=== PATIENT | female | born 1930 | race Two or more races ===

== ENCOUNTER 2017-06-16 14:16 | Inpatient (IN) | payer OTHER, BC ==
--- NOTE | 2017-06-16 15:14 | PDOC ---
History of Present Illness - General Chief Complaint: Lightheaded Stated Complaint: WEAKNESS/SHORTNESS OF BREATH Time Seen by Provider: 06/16/17 14:29 History Source: Patient, Family Exam Limitations: No Limitations - History of Present Illness Initial Comments: 06/16/17 15:11 86 y/o F with PMH cerebral aneurysm L ICA (followed by Dr. Batista), CHF, L lung nodule, L inguinal hernia, WA, HTN, HLD, who presents to the ED c/o weakness over the past week. As per daughter, on Monday, pt developed a productive cough with white sputum. She was tx with robitussin and improved. On , however, pt's cough continued (white sputum now with small specks of BRB) and she suffered from two falls- the first, while getting up to walk to the bathroom, second when she was rising from the commode. During both instances , pt's walker was not nearby. Pt denied palpitations, lightheadedness, LOC, or head trauma during both falls. After pt's falls, daughter brought pt to Dr. Blevins, her neurologist who recommended that she come to the ED for further evaluation. Over the past wk, pt has also c/o generalized weakness and decreased appetite. However, denies wt changes, night sweats, or KINCAID, fever, chills, or changes in urinary or bowel function. Upon ED arrival, pt hypoxic (EMS did not record initial sat) and tachypneic, however sat up to 96% when she was placed on 4L NC 02. At baseline, pt has a health aid and ambulates with a walker. 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 smoked cigarettes for 1-2 yrs during 20's - 1ppd, drank socially. Denied recreational drug use. Past History - Past Medical History Allergies/Adverse Reactions: Allergies Allergy/AdvReac Type Severity Reaction Status Date / Time No Known Allergies Allergy Verified 06/16/17 14:49 Home Medications: Ambulatory Orders Donepezil HCl [Aricept -] 0 mg PO DAILY 06/16/17 Furosemide [Lasix -] 20 mg PO DAILY 06/16/17 Lisinopril 10 mg PO DAILY 06/16/17 Simvastatin 20 mg PO DAILY 06/16/17 - Suicide/Smoking/Psychosocial Hx Smoking History: Never smoked Hx Alcohol Use: No Drug/Substance Use Hx: No Review of Systems - Review of Systems Able to Perform ROS?: Yes Is the patient limited Malay proficient: No Constitutional: Yes: Loss of Appetite, Weakness HEENTM: Yes: Cataracts Respiratory: Yes: Wheezing, Productive cough Cardiac (ROS): Yes: Edema Neurological: Yes: Weakness Psychiatric: Yes: Change in Appetite All Other Systems: Reviewed and Negative *Physical Exam - Vital Signs Last Vital Signs Temp Pulse Resp BP Pulse Ox 97.9 F 68 32 H 132/87 06/16/17 14:40 06/16/17 14:40 06/16/17 14:40 06/16/17 14:40 - Physical Exam General Appearance: Yes: Thin, Other (resting comfortably, in no distress) HEENT: positive: Normal ENT Inspection Neck: positive: Supple Respiratory/Chest: positive: Rhonchi, Wheezing Cardiovascular: positive: Regular Rhythm, Regular Rate, S1, S2 Vascular Pulses: Dorsalis-Pedis (R): 2+, Doralis-Pedis (L): 2+ Gastrointestinal/Abdominal: positive: Normal Bowel Sounds, Soft Musculoskeletal: positive: Normal Inspection Extremity: positive: Swelling (1+ pitting edema b/l) Neurologic: positive: scarfer II-XII NML intact, Other (AAOx2 (self, place)) Heart Score/ECG Review - ECG Impressions Comment:: 06/16/17 16:36 EKG: sinus, pvc's, RVH, possible inferior infarct, rate 71, NJ 196, QRS 82, QTc 491 ED Treatment Course - LABORATORY CBC & Chemistry Diagram: 06/16/17 16:00 06/16/17 16:00 - RADIOLOGY Radiology Studies Ordered: Category Date Time Status CXRPORT [CHEST X-RAY PORTABLE*] [RAD] Stat Radiology 06/16/17 15:07 Ordered Medical Decision Making - Medical Decision Making 06/16/17 15:30 86 y/o F with PMH cerebral aneurysm L ICA (followed by Dr. Batista), CHF, L lung nodule, inguinal hernia, WA, HTN, HLD, who presents to the ED c/o weakness over the past week. Pt currently afebrile, however on presentation to ED hypoxic and with tachypnea. With productive cough with small amt blood, will r/ o PNA. Though pt afebrile, on exam, pt with significant rhonchi and crackles. Will give rocephin and zithromax in meantime. Will also do EKG as pt with multiple falls. Recommend ECHO if pt admitted or past report Will order the following and reassess CBC with diff CMP CXR Trop BNP Blood cx Ucx UA Rocephin 1g x1, zithromax 500mg x 1 06/16/17 17:21 Pt with elevated trop 0.30 - will trend. possibly 2/2 demand. Next trop 10pm CXR: shows cardiomegaly, congestion vs. pneumonic infiltrates. will give lasix 40mg iVP x 1 06/16/17 17:26 Pt will need tele. Microblog to [employer] sent 06/16/17 17:45 discussed case w/ Dr. Mahoney - tele will go under patsalos *DC/Admit/Observation/Transfer Diagnosis at time of Disposition: Pneumonia Qualifiers: Pneumonia type: due to unspecified organism Laterality: unspecified laterality Lung location: unspecified part of lung Qualified Code(s): J18.9 - Pneumonia, unspecified organism - Discharge Dispostion Condition at time of disposition: Guarded Admit: Yes - Referrals Referrals: Anushka Blevins MD [Primary Care Provider] - - Patient Instructions - Post Discharge Activity
[2017-06-16] MEDS ORDERED: CEFTRIAXONE 1 GM in DEXTROSE 5%-WATER - 50 ML IVPB ONE (15:21)
[2017-06-16] MEDS ORDERED: AZITHROMYCIN IVPB 500 MG in DEXTROSE 5%-WATER - 250 ML IVPB ONE (15:21)
--- NOTE | 2017-06-16 16:04 | PDOC ---
Attending Attestation - Resident Resident Name: Brittany Villa - ED Attending Attestation I have performed the following: I have examined & evaluated the patient, The case was reviewed & discussed with the resident, I agree w/resident's findings & plan, Exceptions are as noted - HPI HPI: 06/16/17 16:02 86 year old female with past medical history of congestive heart failure, cerebral aneurysm, hypertension, hyperlipidemia presents emergency department for several days of whitish productive cough with occasional scant blood. The patient has been feeling generally weak and with decreased appetite. She reports that there may be sick contacts to where she hangs out. Denies fevers or chills. However, patient was feeling so weak that she may have fallen twice. Denies head injury. Patient saw her primary care physician Dr. Blevins with and sent the patient to the ER. - Physicial Exam PE: 06/16/17 16:02 GENERAL: Awake, alert, and fully oriented, in no acute distress. HEAD: No signs of trauma EYES: PERRLA, EOMI, sclera anicteric, conjunctiva clear ENT: Auricles normal inspection, hearing grossly normal, nares patent, NECK: Normal ROM, supple LUNGS: Ronchorous breath sounds bilaterally with scant expiratory wheezing. HEART: Regular rate and rhythm, normal S1 and S2, no murmurs, rubs or gallops ABDOMEN: Soft, nontender. No guarding, no rebound. No masses EXTREMITIES: Normal range of motion, no edema. No clubbing or cyanosis. No cords, erythema, or tenderness NEUROLOGICAL: Cranial nerves II through XII grossly intact. Normal speech SKIN: Warm, Dry, normal turgor, no rashes or lesions noted. - Medical Decision Making 06/16/17 16:03 Vital Signs Temp Pulse Resp BP Pulse Ox 97.9 F 68 32 H 132/87 06/16/17 14:40 06/16/17 14:40 06/16/17 14:40 06/16/17 14:40 86-year-old female with past medical history of hypertension, hyperlipidemia, congestive heart failure presents with cough. We'll need to rule out pneumonia. Labs, cultures, chest x-ray and empiric antibody, ceftriaxone and azithromycin. Patient appears generally deconditioned and will likely benefit from admission to the hospital. 06/16/17 17:25 CBC, BMP 06/16/17 16:00 06/16/17 16:00 CMP Sodium 134 mmol/L (136-145) L 06/16/17 16:00 Potassium 4.3 mmol/L (3.5-5.1) 06/16/17 16:00 Chloride 97 mmol/L (98-107) L 06/16/17 16:00 Carbon Dioxide 24 mmol/L (21-32) 06/16/17 16:00 Anion Gap 13 (8-16) 06/16/17 16:00 BUN 31 mg/dL (7-18) H 06/16/17 16:00 Creatinine 1.1 mg/dL (0.55-1.02) H 06/16/17 16:00 Creat Clearance w eGFR 46.88 (>60) 06/16/17 16:00 Random Glucose 98 mg/dL (74-106) 06/16/17 16:00 Calcium 9.0 mg/dL (8.5-10.1) 06/16/17 16:00 Total Bilirubin 0.7 mg/dL (0.2-1.0) 06/16/17 16:00 AST 106 U/L (15-37) H 06/16/17 16:00 ALT 84 U/L (12-78) H 06/16/17 16:00 Alkaline Phosphatase 90 U/L (45-117) 06/16/17 16:00 Creatine Kinase 944 IU/L (26-192) H 06/16/17 16:00 Creatine Kinase Index 0.2 % (0.0-5.0) 06/16/17 16:00 CK-MB (CK-2) 2.435 ng/mL (0.5-3.6) 06/16/17 16:00 Troponin I 0.30 ng/ml (0.00-0.05) H 06/16/17 16:00 B-Natriuretic Peptide 02398.84 pg/ml (5-450) H 06/16/17 16:00 Total Protein 6.9 g/dl (6.4-8.2) 06/16/17 16:00 Albumin 3.0 g/dl (3.4-5.0) L 06/16/17 16:00 Chest xray with congestion and/or infiltrates. Will give IV lasix Troponin noted of 0.3. Will trend troponin. Aspirn Admit Heart Score/ECG Review #1 ECG reviewed & interpreted by me at: 16:05 06/16/17 16:17 NSR 71, RVH, Q wave III, avF, V6, T wave flat V6, TWI I, avL, QTC 491 msec, no std/kristian
[2017-06-16] MEDS ORDERED: AZITHROMYCIN IVPB 250 ML IVPB ONE (16:05)
[2017-06-16] MEDS ORDERED: CEFTRIAXONE 1 GM/50 ML BAG ONE (16:06)
[2017-06-16 16:54] LABS: BASO % 0.3 % (0-2.0); HEMATOCRIT 46.6 % (32.4-45.2); HEMOGLOBIN 15.7 GM/dL (10.7-15.3); LYMPH % 15.5 % (8-40); MCH 31.7 pg (25.7-33.7); MCHC 33.6 g/dl (32.0-36.0); MEAN CELL VOLUME 94.4 fl (80-96); MONO % 13.7 % (3.8-10.2); NEUT % 70.5 % (42.8-82.8); PLATELET COUNT 183 K/MM3 (134-434); RBC 4.94 M/mm3 (3.60-5.2); RDW 14.8 % (11.6-15.6); WHITE BLOOD COUNT 4.8 K/mm3 (4.0-10.0)
[2017-06-16 17:00] LABS: ALK PHOS 90 U/L (45-117); ANION GAP 13 (8-16); BILIRUBIN,TOTAL 0.7 mg/dL (0.2-1.0); BLOOD UREA NITROGEN 31 mg/dL (7-18); CHLORIDE 97 mmol/L (98-107); CO2 24 mmol/L (21-32); CREATININE 1.1 mg/dL (0.55-1.02); GLUCOSE,RANDOM 98 mg/dL (74-106); POTASSIUM 4.3 mmol/L (3.5-5.1); SGOT/AST 106 U/L (15-37); SGPT/ALT 84 U/L (12-78); SODIUM 134 mmol/L (136-145); TOT PROT 6.9 g/dl (6.4-8.2)
[2017-06-16] MEDS ORDERED: FUROSEMIDE 40 MG/4 ML INJECTABLE VIAL IVPUSH ONE (17:19)
[2017-06-16 17:51] LABS: URINE APPEARANCE CLOUDY; URINE BILIRUBIN NEGATIVE (NEGATIVE); URINE BLOOD 3+ (NEGATIVE); URINE COLOR AMBER; URINE GLUCOSE (UA) NEGATIVE (NEGATIVE); URINE KETONE NEGATIVE (NEGATIVE); URINE LEUK ESTERASE NEGATIVE (NEGATIVE); URINE NITRITE NEGATIVE (NEGATIVE); URINE UROBILINOGEN 4.0 E.U/dl mg/dL (0.2-1.0)
[2017-06-16] MEDS ORDERED: ASPIRIN COATED 81 MG TABLET.EC PO ONE (17:56)
[2017-06-16] MEDS ORDERED: FUROSEMIDE 40 MG/4 ML INJECTABLE VIAL ONE (17:57)
[2017-06-16] MEDS ORDERED: ASPIRIN 81 MG CHEWABLE TABLETS ONE (17:57)
[2017-06-16 18:01] LABS: URINE PROTEIN 3+ (NEGATIVE)
[2017-06-16 18:06] LABS: EPI CELLS RARE /HPF (FEW); URINE BACTERIA FEW /hpf (NONE SEEN); URINE HYALINE CAST 4 /lpf; URINE MUCUS RARE
--- NOTE | 2017-06-16 19:02 | PN ---
Teaching Attending Note Name of Resident: Sharon Mahoney ATTENDING PHYSICIAN STATEMENT I saw and evaluated the patient. I reviewed the resident's note and discussed the case with the resident. I agree with the resident's findings and plan as documented. SUBJECTIVE: 86 yo F with PMH CHF, Cerebral aneurysm, HTN and dyslipidemia presented with productive cough x5 days. Sputum has occasionally been streaked with blood. assoc with generalized weakness with multiple unwitnessed falls at home. states she felt weak and fell but did not strike her head and was able to get up without assistance. ambulates with RW. denies CP, fever, chills, myalgia, N/V/C/ D. no recent travel, no sick contacts or young kids. no recent abx use no improvement with robitussin OBJECTIVE: Last Vital Signs Temp Pulse Resp BP Pulse Ox 98.3 F 66 16 103/73 98 06/16/17 17:26 06/16/17 17:26 06/16/17 17:26 06/16/17 17:26 06/16/17 17:26 General thin appearing lady with mild tachypnea CV S1 S2 RRR no rub/gallop/murmur Lungs diffuse rhonchi, some wheezing no crackles Abdomen soft NT/ND Extremities 1+ pitting edema ASSESSMENT AND PLAN: 86 yo F with PMH CHF, Cerebral aneurysm, HTN and dyslipidemia presented with productive cough x5 days. 1. hemoptysis- tele admission. due to Acute on Chronic CHF vs PNA. started on azithromycin and ceftriaxone and lasix 40mg IV. will cont for now. obtain CT chest for questionable nodules seen and blood streaked sputum. will give neb x1 stat and then prn. supplemental oxygen as needed to maintain spO2 >90% 2. Tropinemia- no EKG changes. continuous cardiac monitoring. trend cardiac enzymes. check echo 3. Polycythemia- possible intravascular depleted. will monitor. if continues to trend up with consider heme eval 4. KRISTEL- due to pre-renal. check urine lytes. avoid nephrotoxic agents. hold acei 5. Dementia- cont aricept 6. dyslipiemia- on statin 7. DVT ppx- hep sq
--- NOTE | 2017-06-16 19:09 | HP ---
CHIEF COMPLAINT: weak PCP: HISTORY OF PRESENT ILLNESS: 86 year old female with a past medical history of hypertension, dementia, HLD, presents to the emergency brought in by her daughter, due to weakness, cough with white sputum production along with intermittent blood tinged sputum, for the past five days. She denies fever, chills, n, v, abdominal pain, changes in bowel or bladder. No sick contacts. She has also c/o weakness s/p two unwitnessed falls at home. Denies LOC, bodily injury, incontinence during episode, chest pain, palpitations. She uses a walker at home, admits to leg weakness. ER course was notable for: (1)CXR; cardiomegaly with nodular infiltrates Recent Travel: none PAST MEDICAL HISTORY: htn PAST SURGICAL HISTORY: Social History: Smoking:used to smoke 1 pack of cigarettes; 2day; quit years ago Alcohol:no Drugs: no Family History: Allergies No Known Allergies Allergy (Verified 06/16/17 14:49) HOME MEDICATIONS: Home Medications Medication Instructions Recorded Donepezil HCl [Aricept -] 0 mg PO DAILY 06/16/17 Furosemide [Lasix -] 20 mg PO DAILY 06/16/17 Lisinopril 10 mg PO DAILY 06/16/17 Simvastatin 20 mg PO DAILY 06/16/17 REVIEW OF SYSTEMS: see hpi PHYSICAL EXAMINATION Vital Signs - 24 hr 06/16/17 06/16/17 06/16/17 14:40 16:00 16:26 Temperature 97.9 F Pulse Rate 68 Pulse Rate [ Apical] Respiratory 32 H Rate Blood Pressure 132/87 Blood Pressure [Left Arm] O2 Sat by Pulse 100 100 Oximetry (%) 06/16/17 17:26 Temperature 98.3 F Pulse Rate Pulse Rate [ 66 Apical] Respiratory 16 Rate Blood Pressure Blood Pressure 103/73 [Left Arm] O2 Sat by Pulse 98 Oximetry (%) GENERAL: Awake, alert, and fully oriented to person, place, time; although mildy confused; not in acute distress . HEAD: Normal with no signs of trauma. EYES: Pupils equal, round and reactive to light, extraocular movements intact, sclera anicteric, conjunctiva clear. No lid lag. NECK: Normal range of motion, supple without lymphadenopathy, JVD, or masses. LUNGS: course breath sounds ; bilateral inspiratory/exp wheezes throughout lung cotter HEART: Regular rate and rhythm, normal S1 and S2 without murmur, rub or gallop. ABDOMEN: Soft, nontender, not distended, normoactive bowel sounds, no guarding, no rebound, no masses. No hepatomegaly or splenomegaly. MUSCULOSKELETAL: Normal range of motion at all joints. No bony deformities or tenderness. No CVA tenderness. UPPER EXTREMITIES: 2+ pulses, warm, well-perfused. No cyanosis. No clubbing. No peripheral edema. LOWER EXTREMITIES: 2+ pulses, warm, well-perfused. No calf tenderness. b/l 1+ pitting edema. NEUROLOGICAL: mild cognitive impairment at baseline; following comands; aaox3; full muscle strength and sensation Laboratory Results - last 24 hr 06/16/17 06/16/17 06/16/17 16:00 16:00 16:00 WBC 4.8 RBC 4.94 Hgb 15.7 H Hct 46.6 H MCV 94.4 MCH 31.7 MCHC 33.6 RDW 14.8 Plt Count 183 MPV 9.0 Neutrophils % 70.5 Lymphocytes % 15.5 Monocytes % 13.7 H Eosinophils % 0.0 Basophils % 0.3 Sodium 134 L Potassium 4.3 Chloride 97 L Carbon Dioxide 24 Anion Gap 13 BUN 31 H Creatinine 1.1 H Creat Clearance w eGFR 46.88 Random Glucose 98 Calcium 9.0 Total Bilirubin 0.7 AST 106 H ALT 84 H Alkaline Phosphatase 90 Creatine Kinase 944 H Creatine Kinase Index 0.2 CK-MB (CK-2) 2.435 Troponin I 0.30 H B-Natriuretic Peptide Total Protein 6.9 Albumin 3.0 L Urine Color Urine Appearance Urine pH Ur Specific [place] Urine Protein Urine Glucose (UA) Urine Ketones Urine Blood Urine Nitrite Urine Bilirubin Urine Urobilinogen Ur Leukocyte Esterase 06/16/17 06/16/17 16:00 17:10 WBC RBC Hgb Hct MCV MCH MCHC RDW Plt Count MPV Neutrophils % Lymphocytes % Monocytes % Eosinophils % Basophils % Sodium Potassium Chloride Carbon Dioxide Anion Gap BUN Creatinine Creat Clearance w eGFR Random Glucose Calcium Total Bilirubin AST ALT Alkaline Phosphatase Creatine Kinase Creatine Kinase Index CK-MB (CK-2) Troponin I B-Natriuretic Peptide 01359.84 H Total Protein Albumin Urine Color Kaitlyn Urine Appearance Cloudy Urine pH 5.0 Ur Specific [place] 1.019 Urine Protein 3+ H Urine Glucose (UA) Negative Urine Ketones Negative Urine Blood 3+ H Urine Nitrite Negative Urine Bilirubin Negative Urine Urobilinogen 4.0 e.u/dl H Ur Leukocyte Esterase Negative ASSESSMENT/PLAN: 86 year old female with a past medical history of hypertension, presents with cough (blood tinged sputum), weakness, s/p two falls at home with in the past week, tachypniec on admission, nodular pulmonary infiltrates on CXR , elevated bnp with b/l leg swelling; r/o pna; treat for acute chf. #cough with blood tinged sputum production: r/o pna/chf/lung nodules -IV ceftriaxone and IV azithromycin -f/u blood/sputum cultures -duoneb stat/prn -IV lasix 40mg stat; re eval volume status in am -monitor strict I/O; daily weights -echo -cardiac monitoring -f/u chest CT #elevated troponin: -no ecg chnages ; most likely demand ischemia from acute heart failure #KRISTEL: most likely pre renal -no baseline -cr1.1; -will hold off on hydration due to vol overload -hold nephrotoxic agents -urine lytes -trend creatinine; if continue to rise will get renal US #elevated liver enzymes: -no pain; hx of hepatitis or alcohol -may be due to statin -trend cmp; if continue to rise will get abdominal US #polycythemia: -will trend cbc; no thrombosis; marya red cell mass -if continues to trend up consider heme eval FEN: FLuids: strict monitor once; gentle hydration if kidney fnx worsens Electrolytes : wnl Diet: cardiac VTE: heparin sq Disposition: inpt tele Case discussed with attending Dr Jacob Mahoney PGY-2 Problem List - Problem (1) Acute CHF Code(s): I50.9 - HEART FAILURE, UNSPECIFIED (2) Hemoptysis Code(s): R04.2 - HEMOPTYSIS (3) Polycythemia Code(s): D75.1 - SECONDARY POLYCYTHEMIA (4) KRISTEL (acute kidney injury) Code(s): N17.9 - ACUTE KIDNEY FAILURE, UNSPECIFIED (5) Pneumonia Code(s): J18.9 - PNEUMONIA, UNSPECIFIED ORGANISM Qualifiers: Pneumonia type: due to unspecified organism Laterality: unspecified laterality Lung location: unspecified part of lung Qualified Code(s): J18.9 - Pneumonia, unspecified organism Visit type - Emergency Visit Emergency Visit: Yes ED Registration Date: 06/16/17 Care time: The patient presented to the Emergency Department on the above date and was hospitalized for further evaluation of their emergent condition. - New Patient This patient is new to me today: Yes Date on this admission: 06/17/17 - Critical Care Critical Care patient: No Hospitalist Screening - Colonoscopy Questionnaire Colonoscopy Questionnaire: Colonoscopy Questionnaire - Patient: 50 - 75 years old and never had a screening colonoscopy: No History of colon or rectal polyps, or CA: No History of IBD, Crohn's disease or UC: No History of abdominal radiation therapy as a child: No - Relative: 1 with colon or rectal CA, or polyps at age 60 or younger: No Colon or rectal CA diagnosed at age 45 or younger: No Multiple relatives with colon or rectal CA: No - Outcome: Screening Result: Negative Screen
[2017-06-16] MEDS ORDERED: ALBUTEROL SO4 2.5/IPRATROPIUM 0.5 INH SOL 3 ML VIAL.NEB. NEB ONE ×2 (19:12→20:46)
[2017-06-16] MEDS ORDERED: ALBUTEROL SO4 2.5/IPRATROPIUM 0.5 INH SOL 3 ML VIAL.NEB. NEB PRN (19:18)
[2017-06-16 20:38] LABS: PHOSPHOROUS 3.3 mg/dL (2.5-4.9)
[2017-06-16 21:24] VITALS: BMI 24.6
[2017-06-16] MEDS: HEPARIN NA (PORCINE) 5,000 UNITS/ML 1ML VIAL SQ SCH (22:04)
[2017-06-16] MEDS: ATORVASTATIN CA 10 MG TABLET (FP) PO SCH (22:04)
[2017-06-16] MEDS: DONEPEZIL HCL 5 MG TABLET (FP) PO SCH (22:04)
[2017-06-17 06:36] LABS: BASO % 0.5 % (0-2.0); HEMATOCRIT 48.2 % (32.4-45.2); HEMOGLOBIN 15.7 GM/dL (10.7-15.3); LYMPH % 23.2 % (8-40); MCH 30.9 pg (25.7-33.7); MCHC 32.5 g/dl (32.0-36.0); MEAN PLT VOLUME 8.5 fl (7.5-11.1); MONO % 11.4 % (3.8-10.2); NEUT % 64.9 % (42.8-82.8); RBC 5.07 M/mm3 (3.60-5.2); RDW 14.9 % (11.6-15.6)
[2017-06-17] MEDS: HEPARIN NA (PORCINE) 5,000 UNITS/ML 1ML VIAL SQ SCH ×3 (06:53→22:23)
[2017-06-17 07:18] LABS: CHLORIDE 98 mmol/L (98-107); POTASSIUM 3.8 mmol/L (3.5-5.1); SODIUM 135 mmol/L (136-145)
[2017-06-17 07:36] LABS: ALBUMIN 2.5 g/dl (3.4-5.0); ALK PHOS 89 U/L (45-117); ANION GAP 11 (8-16); BILIRUBIN,TOTAL 0.7 mg/dL (0.2-1.0); BLOOD UREA NITROGEN 33 mg/dL (7-18); CALCIUM 8.8 mg/dL (8.5-10.1); CO2 26 mmol/L (21-32); CREATININE 1.1 mg/dL (0.55-1.02); GLUCOSE,RANDOM 85 mg/dL (74-106); SGOT/AST 91 U/L (15-37); SGPT/ALT 72 U/L (12-78)
[2017-06-17 09:07] LABS: PLATELET COUNT 154 K/MM3 (134-434)
[2017-06-17] MEDS ORDERED: PT OWN MED DRAWER 7, Y5N ONE (09:30)
[2017-06-17] MEDS: AZITHROMYCIN IVPB 250 MG in DEXTROSE 5%-WATER - 250 ML IVPB SCH (09:38)
[2017-06-17] MEDS ORDERED: CEFTRIAXONE 1 G/50 ML PREMIX 50 ML IVPB ONE (10:00)
--- NOTE | 2017-06-17 11:39 | PN ---
Progress Note (short form) - Note Progress Note: c/o cough intermittently productive. slightly improved. no more hemoptysis. denies CP, SOB, fever, chills, cough, N/V/C/D Current Medications Generic Name Dose Route Start Last Admin Trade Name Freq PRN Reason Stop Dose Admin Albuterol/Ipratropium 1 amp 06/16/17 19:18 06/17/17 06:05 Duoneb - NEB 1 amp Q4H PRN Administration SHORTNESS OF BREATH Atorvastatin Calcium 10 mg 06/16/17 22:00 06/16/17 22:04 Lipitor - PO 10 mg HS MARIANA Administration Donepezil HCl 5 mg 06/16/17 22:00 06/16/17 22:04 Aricept - PO 5 mg HS MARIANA Administration Heparin Sodium (Porcine) 5,000 unit 06/16/17 22:00 06/17/17 06:53 Heparin - SQ 5,000 unit TID MARIANA Administration Azithromycin 250 mg/ Dextrose 250 mls @ 250 mls/hr 06/17/17 10:00 06/17/17 09 :38 IVPB 250 mls/hr DAILY MARIANA Administration Last Vital Signs Temp Pulse Resp BP Pulse Ox 97.7 F 69 20 125/70 96 06/17/17 06:00 06/17/17 06:00 06/17/17 06:00 06/17/17 06:00 06/16/17 21:18 Intake & Output 06/14/17 06/15/17 06/16/17 06/17/17 23:59 23:59 23:59 23:59 Weight 114 lb 108 lb 8 oz General NAD CV S1 S2 RRR no rub/gallop/murmur Lungs diffuse rhonchi,some crackles Abdomen soft NT/ND Extremities no pitting edema CBCD WBC 4.0 K/mm3 (4.0-10.0) 06/17/17 06:15 RBC 5.07 M/mm3 (3.60-5.2) 06/17/17 06:15 Hgb 15.7 GM/dL (10.7-15.3) H 06/17/17 06:15 Hct 48.2 % (32.4-45.2) H 06/17/17 06:15 MCV 95.0 fl (80-96) 06/17/17 06:15 MCHC 32.5 g/dl (32.0-36.0) 06/17/17 06:15 RDW 14.9 % (11.6-15.6) 06/17/17 06:15 Plt Count 154 K/MM3 (134-434) 06/17/17 06:15 MPV 8.5 fl (7.5-11.1) 06/17/17 06:15 CMP Sodium 135 mmol/L (136-145) L 06/17/17 06:15 Potassium 3.8 mmol/L (3.5-5.1) 06/17/17 06:15 Chloride 98 mmol/L (98-107) 06/17/17 06:15 Carbon Dioxide 26 mmol/L (21-32) 06/17/17 06:15 Anion Gap 11 (8-16) 06/17/17 06:15 BUN 33 mg/dL (7-18) H 06/17/17 06:15 Creatinine 1.1 mg/dL (0.55-1.02) H 06/17/17 06:15 Creat Clearance w eGFR 46.88 (>60) 06/17/17 06:15 Calcium 8.8 mg/dL (8.5-10.1) 06/17/17 06:15 Total Bilirubin 0.7 mg/dL (0.2-1.0) 06/17/17 06:15 AST 91 U/L (15-37) H 06/17/17 06:15 ALT 72 U/L (12-78) 06/17/17 06:15 Alkaline Phosphatase 89 U/L (45-117) 06/17/17 06:15 Total Protein 6.0 g/dl (6.4-8.2) L 06/17/17 06:15 Albumin 2.5 g/dl (3.4-5.0) L 06/17/17 06:15 ASSESSMENT AND PLAN: 86 yo F with PMH CHF, Cerebral aneurysm, HTN and dyslipidemia presented with productive cough x5 days. 1. Acute on chronic CHF exacerbation- 6 lb weight loss since yesterday. clinically improved. cont lasix 40mg IV daily. strict I&O, daily weights. echo on monday. 2. B/L PNA- likely persistent cough causing hemoptysis now resolved. saturating 98% on 2L NC. cont Azithromycin/Ceftriaxone day 2. make nebs RTC as not requesting them. supplemental oxygen as needed to maintain spO2 >90% 3. Tropinemia- no EKG changes. on monitor questionable irregular rhythm. will check EKG. check echo 4. Polycythemia- possible intravascular depleted. stable. if continues to trend up with consider heme eval 5. Mechanical fall-due to refusal to use RW at home. PT assessment. may require NEO on discharge 6. KRISTEL- due to pre-renal. FeNa <1%. will monitor with diuresis. monitor electrolytes. avoid nephrotoxic agents. hold acei 7. Dementia- cont aricept 8. dyslipiemia- on statin 9. DVT ppx- hep sq 10. spoke with daughter present at bedside. all questions answered. verbalized agreement with plan. Agreeable to NEO placement if needed. Preference Ela Visit type - Emergency Visit Emergency Visit: Yes ED Registration Date: 06/16/17 Care time: The patient presented to the Emergency Department on the above date and was hospitalized for further evaluation of their emergent condition. - New Patient This patient is new to me today: No - Critical Care Critical Care patient: No - Discharge Referral Referred to [facility] No
[2017-06-17] MEDS ORDERED: CEFTRIAXONE 1 GM in DEXTROSE 5%-WATER - 50 ML IVPB SCH (13:00)
[2017-06-17] MEDS: FUROSEMIDE 40 MG/4 ML INJECTABLE VIAL IVPUSH SCH (13:21)
[2017-06-17] MEDS: ALBUTEROL SO4 2.5/IPRATROPIUM 0.5 INH SOL 3 ML VIAL.NEB. NEB SCH ×2 (15:06→20:55)
[2017-06-17] MEDS: ATORVASTATIN CA 10 MG TABLET (FP) PO SCH (22:23)
[2017-06-17] MEDS: DONEPEZIL HCL 5 MG TABLET (FP) PO SCH (22:23)
--- NOTE | 2017-06-17 22:33 | EKG ---
Test Reason : Blood Pressure : / mmHG Vent. Rate : 077 BPM Atrial Rate : 077 BPM P-R Int : 000 ms QRS Dur : 084 ms QT Int : 404 ms P-R-T Axes : 000 -81 081 degrees QTc Int : 457 ms SINUS RHYTHM WITH PREMATURE VENTRICULAR COMPLEXES LEFT AXIS DEVIATION POSSIBLE LATERAL INFARCT (CITED ON OR BEFORE 16-JUN-2017) INFERIOR INFARCT (CITED ON OR BEFORE 16-JUN-2017) ABNORMAL ECG WHEN COMPARED WITH ECG OF 16-JUN-2017 16:07, NONSPECIFIC T WAVE ABNORMALITY, IMPROVED IN LATERAL LEADS Confirmed by MD JULIEN, DEEEDE ([id number]) on 06/17/2017 10:32:45 PM Referred By: Corey CROWLEY Confirmed By:DEEDEE VICTORIA MD
[2017-06-18] MEDS: HEPARIN NA (PORCINE) 5,000 UNITS/ML 1ML VIAL SQ SCH ×3 (05:52→21:24)
[2017-06-18 06:41] LABS: HEMATOCRIT 46.7 % (32.4-45.2); HEMOGLOBIN 15.1 GM/dL (10.7-15.3); MCH 30.5 pg (25.7-33.7); MCHC 32.4 g/dl (32.0-36.0); MEAN CELL VOLUME 94.2 fl (80-96); MEAN PLT VOLUME 8.2 fl (7.5-11.1); PLATELET COUNT 147 K/MM3 (134-434); RBC 4.96 M/mm3 (3.60-5.2); RDW 14.4 % (11.6-15.6); WHITE BLOOD COUNT 3.7 K/mm3 (4.0-10.0)
--- NOTE | 2017-06-18 07:19 | PN ---
Physical Exam: SUBJECTIVE: Patient seen and examined. No acute events overnight. Offers no new complaints. Says her breathing is better. Says she's still coughing a little but more dry with phlegm decreased. Denies SOB, hemoptysis, abdominal pain, chest pain, nausea, vomiting, fevers, chills. OBJECTIVE: Vital Signs Period Temp Pulse Resp BP Sys/Eastman Pulse Ox Last 24 Hr 98.3 F-98.9 F 74-95 20-20 116-148/72-92 97-99 GENERAL: The patient is awake, alert, and fully oriented, in no acute distress. HEAD: Normal with no signs of trauma. EYES: extraocular movements intact, conjunctiva clear. ENT:oropharynx clear without exudates, moist mucous membranes. NECK: supple. LUNGS: 2L NC, ins/exp wheezing, mild rhonchi HEART: Regular rate and rhythm, S1, S2 without murmur, rub or gallop. ABDOMEN: Soft, nontender, nondistended, normoactive bowel sounds, no guarding, no rebound, no hepatosplenomegaly, no masses. EXTREMITIES: 2+ pulses, warm, well-perfused, no edema. PSYCH: Normal mood, normal affect. Laboratory Results - last 24 hr 06/17/17 06/17/17 06:15 06:15 WBC 4.0 RBC 5.07 Hgb 15.7 H Hct 48.2 H MCV 95.0 MCH 30.9 MCHC 32.5 RDW 14.9 Plt Count 154 MPV 8.5 Neutrophils % 64.9 Lymphocytes % 23.2 D Monocytes % 11.4 H Eosinophils % 0.0 Basophils % 0.5 Sodium 135 L Potassium 3.8 Chloride 98 Carbon Dioxide 26 Anion Gap 11 BUN 33 H Creatinine 1.1 H Creat Clearance w eGFR 46.88 Random Glucose 85 Calcium 8.8 Total Bilirubin 0.7 AST 91 H ALT 72 Alkaline Phosphatase 89 Total Protein 6.0 L Albumin 2.5 L Active Medications Generic Name Dose Route Start Last Admin Trade Name Freq PRN Reason Stop Dose Admin Albuterol/Ipratropium 1 amp 06/16/17 19:18 06/17/17 06:05 Duoneb - NEB 1 amp Q4H PRN Administration SHORTNESS OF BREATH Albuterol/Ipratropium 1 amp 06/17/17 16:00 06/17/17 20:55 Duoneb - NEB 1 amp RQID MARIANA Administration Atorvastatin Calcium 10 mg 06/16/17 22:00 06/17/17 22:23 Lipitor - PO 10 mg HS MARIANA Administration Donepezil HCl 5 mg 06/16/17 22:00 06/17/17 22:23 Aricept - PO 5 mg HS MARIANA Administration Furosemide 40 mg 06/17/17 11:45 06/17/17 13:21 Lasix Injection - IVPUSH 40 mg DAILY MARIANA Administration Heparin Sodium (Porcine) 5,000 unit 06/16/17 22:00 06/18/17 05:52 Heparin - SQ Not Given TID MARIANA Azithromycin 250 mg/ Dextrose 250 mls @ 250 mls/hr 06/17/17 10:00 06/17/17 09 :38 IVPB 250 mls/hr DAILY MARIANA Administration CEFTRIAXONE 1 G/50 ML PREMIX 50 mls @ 100 mls/hr 06/17/17 13:30 Ceftriaxone 1 Gm-D5w Bag IVPB DAILY MARIANA ASSESSMENT/PLAN: 86 yo F with PMH CHF, Cerebral aneurysm, HTN and dyslipidemia presented with productive cough x5 days. #Acute on Chronic CHF exacerbation -Cont Lasix 40mg IV -Strict I/O's -Daily weights -Echo on Monday -Duonebs PRN #Bilateral Pneumonia -Cont. IV abx: Azithromycin/Ceftraixone Day 3 -CXR on admission: cardiomegaly with nodular infiltrates -afebrile, no leukocytosis -O2 therapy, maintain Sat>90% -Ucx, Bcx negative -1x Solumedrol 40mg #KRISTEL -resolved -likely due prerenal -will monitor BMP -avoid nephrotoxins -AceI held #Tropinemia -trended down -No ekg changes -FU echo tomorrow #Mechanical Fall -PT assessment -will require NEO on discharge #Dementia -cont home med: Aricept #Dyslipidemia -cont home med: Lipitor 10mg #DVT ppx -Hep sq Visit type - Emergency Visit Emergency Visit: Yes ED Registration Date: 06/16/17 Care time: The patient presented to the Emergency Department on the above date and was hospitalized for further evaluation of their emergent condition. - New Patient This patient is new to me today: Yes Date on this admission: 06/18/17 - Critical Care Critical Care patient: No
[2017-06-18 07:26] LABS: ANION GAP 9 (8-16); BLOOD UREA NITROGEN 24 mg/dL (7-18); CALCIUM 7.8 mg/dL (8.5-10.1); CHLORIDE 97 mmol/L (98-107); CO2 30 mmol/L (21-32); GLUCOSE,RANDOM 96 mg/dL (74-106); MAGNESIUM 1.7 mg/dL (1.8-2.4); PHOSPHOROUS 2.5 mg/dL (2.5-4.9); POTASSIUM 3.4 mmol/L (3.5-5.1); SODIUM 136 mmol/L (136-145)
[2017-06-18] MEDS ORDERED: MAGNESIUM SULF 50% (8.12 MEQ/2 ML-1 GM VIAL) IVPB ONE (07:44)
[2017-06-18] MEDS: ALBUTEROL SO4 2.5/IPRATROPIUM 0.5 INH SOL 3 ML VIAL.NEB. NEB SCH ×4 (07:57→21:20)
[2017-06-18] MEDS ORDERED: MAGNESIUM 1GM/D5W - 1 GM/100 ML IVPB IVPB ONE (09:30)
[2017-06-18] MEDS ORDERED: PT OWN MED DRAWER 7, Y5N ONE (09:50)
[2017-06-18] MEDS ORDERED: POTASSIUM CHLORIDE TABS 20 MEQ TABLET.ER (FP) PO ONE (10:03)
[2017-06-18] MEDS: FUROSEMIDE 40 MG/4 ML INJECTABLE VIAL IVPUSH SCH (10:29)
[2017-06-18] MEDS: CEFTRIAXONE 1 G/50 ML PREMIX 50 ML IVPB SCH (10:29)
[2017-06-18] MEDS: AZITHROMYCIN IVPB 250 MG in DEXTROSE 5%-WATER - 250 ML IVPB SCH (10:29)
--- NOTE | 2017-06-18 14:48 | PN ---
Teaching Attending Note Name of Resident: Teresa Gant ATTENDING PHYSICIAN STATEMENT I saw and evaluated the patient. I reviewed the resident's note and discussed the case with the resident. I agree with the resident's findings and plan as documented. SUBJECTIVE:continues to have cough but less productive. wheezing today with some relief with breathing treatments. denies CP, SOb, fever, chills, N/V/C?D as per staff editor was agitated last night. pt does not reacall OBJECTIVE: Last Vital Signs Temp Pulse Resp BP Pulse Ox 98.5 F 70 20 125/64 96 06/18/17 14:18 06/18/17 14:18 06/18/17 13:30 06/18/17 14:18 06/18/17 09:00 Intake & Output 06/15/17 06/16/17 06/17/17 06/18/17 23:59 23:59 23:59 23:59 Intake Total 250 Balance 250 Weight 114 lb 108 lb 8 oz General NAD CV S1 S2 RRR no murmur/rub/gallop Lungs diffuse wheezing. some crackles R base. poor inspiratory effort Extremities no pedal edema ASSESSMENT AND PLAN: 86 yo F with PMH CHF, Cerebral aneurysm, HTN and dyslipidemia presented with productive cough x5 days. 1. Acute on chronic CHF exacerbation- no weight today. will cont lasix IV daily. refused weight today. monitor electrolytes. strict I&O, daily weights. echo on monday. 2. B/L PNA- likely persistent cough causing hemoptysis now resolved. give solumedrol 40mg x1. saturating 98% on 2L NC. cont Azithromycin/Ceftriaxone day 3. cont nebs. supplemental oxygen as needed to maintain spO2 >90% 3. Tropinemia- no EKG changes. repeat EKG showing PAC. check echo 4. Polycythemia- possible intravascular depleted. resolved 5. Mechanical fall-due to refusal to use RW at home. PT assessment. may require NEO on discharge 6. KRISTEL- due to pre-renal. FeNa <1%. resolved. avoid nephrotoxic agents. hold acei 7. Dementia- agitation at night. will start seroquel. correction to aricept as per daughter takes 10mg will increase. 8. Hypokalemia- KCL po 9. Hypomagnesemia- Mg po 10. dyslipiemia- on statin 11. DVT ppx- hep sq 12. spoke with daughter present at bedside. all questions answered. verbalized agreement with plan.
[2017-06-18] MEDS ORDERED: methylPREDNISolone NA SUCC 40 MG/1 ML VIAL IVPUSH ONE (15:10)
[2017-06-18] MEDS: DONEPEZIL HCL 5 MG TABLET (FP) PO SCH (21:24)
[2017-06-18] MEDS: ATORVASTATIN CA 10 MG TABLET (FP) PO SCH (21:24)
[2017-06-18] MEDS ORDERED: QUEtiapine FUMARATE 25 MG TABLET (FP) PO SCH (22:00)
[2017-06-19] MEDS: HEPARIN NA (PORCINE) 5,000 UNITS/ML 1ML VIAL SQ SCH ×3 (05:24→21:51)
[2017-06-19 07:11] LABS: HEMATOCRIT 44.6 % (32.4-45.2); HEMOGLOBIN 14.7 GM/dL (10.7-15.3); MCH 30.9 pg (25.7-33.7); MCHC 32.9 g/dl (32.0-36.0); MEAN CELL VOLUME 93.7 fl (80-96); MEAN PLT VOLUME 8.2 fl (7.5-11.1); PLATELET COUNT 140 K/MM3 (134-434); RBC 4.76 M/mm3 (3.60-5.2); RDW 14.5 % (11.6-15.6); WHITE BLOOD COUNT 2.7 K/mm3 (4.0-10.0)
[2017-06-19] MEDS: ALBUTEROL SO4 2.5/IPRATROPIUM 0.5 INH SOL 3 ML VIAL.NEB. NEB SCH ×4 (07:20→19:02)
[2017-06-19 07:44] LABS: ANION GAP 8 (8-16); BLOOD UREA NITROGEN 25 mg/dL (7-18); CALCIUM 7.5 mg/dL (8.5-10.1); CHLORIDE 98 mmol/L (98-107); CO2 30 mmol/L (21-32); CREATININE 1.1 mg/dL (0.55-1.02); GLUCOSE,RANDOM 136 mg/dL (74-106); POTASSIUM 3.8 mmol/L (3.5-5.1); SODIUM 136 mmol/L (136-145)
[2017-06-19] MEDS: FUROSEMIDE 40 MG/4 ML INJECTABLE VIAL IVPUSH SCH (11:18)
[2017-06-19] MEDS: CEFTRIAXONE 1 G/50 ML PREMIX 50 ML IVPB SCH (11:18)
[2017-06-19] MEDS: AZITHROMYCIN IVPB 250 MG in DEXTROSE 5%-WATER - 250 ML IVPB SCH (11:18)
--- NOTE | 2017-06-19 12:56 | PN ---
Teaching Attending Note Name of Resident: Teresa Gant ATTENDING PHYSICIAN STATEMENT I saw and evaluated the patient. I reviewed the resident's note and discussed the case with the resident. I agree with the resident's findings and plan as documented. SUBJECTIVE:lethargic. shakes head no to difficulty breathing and CP. no cough OBJECTIVE: Last Vital Signs Temp Pulse Resp BP Pulse Ox 97.8 F 98 H 20 120/75 97 06/19/17 10:00 06/19/17 10:00 06/19/17 10:00 06/19/17 10:00 06/18/17 20:59 Intake & Output 06/16/17 06/17/17 06/18/17 06/19/17 23:59 23:59 23:59 23:59 Intake Total 250 100 Balance 250 100 Weight 114 lb 108 lb 8 oz 99 lb General lethargic, opens eyes to verbal commands CV S1 S2 RRR no murmur/rub/gallop Lungs some rhonchi. no wheezing no crackles Extremities no pedal edema ASSESSMENT AND PLAN: 86 yo F with PMH CHF, Cerebral aneurysm, HTN and dyslipidemia presented with productive cough x5 days. 1. Acute on chronic CHF exacerbation- 9 lb weight loss. no signs of volume overload. will convert lasix iv to po. echo done pending results. strict I&O, daily weights. 2. B/L PNA- likely persistent cough causing hemoptysis now resolved. clinically improved. cont Azithromycin/Ceftriaxone day 4. cont nebs. supplemental oxygen as needed to maintain spO2 >90% check pre & post 3. Tropinemia- no EKG changes. repeat EKG showing PAC. check echo 4. Polycythemia- possible intravascular depleted. resolved 5. Mechanical fall-due to refusal to use RW at home. PT assessment. may require NEO on discharge 6. KRISTEL- due to pre-renal. FeNa <1%. resolved. avoid nephrotoxic agents. consider re-starting acei tomorrow. 7. Dementia- no agitation last night with seroquel. however remains lethargic. frequent neurochecks. re-evaluate. 8. Hypokalemia-resolved 9. Hypomagnesemia- resolved 10. dyslipiemia- on statin 11. DVT ppx- hep sq 12. spoke with daughter present at bedside. all questions answered. verbalized agreement with plan.
--- NOTE | 2017-06-19 16:33 | PN ---
Physical Exam: SUBJECTIVE: Patient seen and examined. Patient lethargic. Responds by shaking head. Denies shortness of breath, chest pain, nausea, vomiting. OBJECTIVE: Vital Signs Period Temp Pulse Resp BP Sys/Eastman Pulse Ox Last 24 Hr 97.4 F-97.9 F 70-98 18-20 120-132/75-80 94-97 GENERAL: The patient is awake, alert, and fully oriented, in no acute distress. HEAD: Normal with no signs of trauma. EYES: extraocular movements intact, conjunctiva clear. ENT:oropharynx clear without exudates, moist mucous membranes. NECK: supple. LUNGS: 3L NC, ins/exp wheezing b/l HEART: Regular rate and rhythm, S1, S2 without murmur, rub or gallop. ABDOMEN: Soft, nontender, nondistended, normoactive bowel sounds, no guarding, no rebound, no hepatosplenomegaly, no masses. EXTREMITIES: 2+ pulses, warm, well-perfused, no edema. PSYCH: Normal mood, normal affect. Laboratory Results - last 24 hr 06/19/17 06/19/17 06:48 06:48 WBC 2.7 L RBC 4.76 Hgb 14.7 Hct 44.6 MCV 93.7 MCH 30.9 MCHC 32.9 RDW 14.5 Plt Count 140 MPV 8.2 Sodium 136 Potassium 3.8 Chloride 98 Carbon Dioxide 30 Anion Gap 8 BUN 25 H Creatinine 1.1 H Random Glucose 136 H Calcium 7.5 L Magnesium 2.0 Active Medications Generic Name Dose Route Start Last Admin Trade Name Freq PRN Reason Stop Dose Admin Albuterol/Ipratropium 1 amp 06/16/17 19:18 06/17/17 06:05 Duoneb - NEB 1 amp Q4H PRN Administration SHORTNESS OF BREATH Albuterol/Ipratropium 1 amp 06/17/17 16:00 06/19/17 15:48 Duoneb - NEB 1 amp RQID MARIANA Administration Atorvastatin Calcium 10 mg 06/16/17 22:00 06/18/17 21:24 Lipitor - PO 10 mg HS MARIANA Administration Donepezil HCl 10 mg 06/18/17 15:11 06/18/17 21:24 Aricept - PO 10 mg HS MARIANA Administration Furosemide 40 mg 06/20/17 10:00 Lasix - PO DAILY MARIANA Heparin Sodium (Porcine) 5,000 unit 06/16/17 22:00 06/19/17 05:24 Heparin - SQ 5,000 unit TID MARIANA Administration Azithromycin 250 mg/ Dextrose 250 mls @ 250 mls/hr 06/17/17 10:00 06/19/17 11 :18 IVPB 250 mls/hr DAILY MARIANA Administration CEFTRIAXONE 1 G/50 ML PREMIX 50 mls @ 100 mls/hr 06/17/17 13:30 06/19/17 11: 18 Ceftriaxone 1 Gm-D5w Bag IVPB 100 mls/hr DAILY MARIANA Administration ASSESSMENT/PLAN: 86 yo F with PMH CHF, Cerebral aneurysm, HTN and dyslipidemia presented with productive cough x5 days. #Acute on Chronic CHF exacerbation -Changed to Lasix 40mg PO daily -Strict I/O's -Daily weights -FU echo -Duonebs PRN #Bilateral Pneumonia -Cont. IV abx: Azithromycin/Ceftriaxone Day 4 -CXR on admission: cardiomegaly with nodular infiltrates -afebrile, no leukocytosis -O2 therapy, maintain Sat>90% -Ucx, Bcx negative #KRISTEL -resolved -likely due prerenal -will monitor BMP -avoid nephrotoxins -AceI held #Tropinemia -trended down -No ekg changes -FU echo tomorrow #Mechanical Fall -PT assessment -will require NEO on discharge -Pre/post in AM #Dementia -cont home med: Aricept -held Seroquel due to lethargy #Dyslipidemia -cont home med: Lipitor 10mg #DVT ppx -Hep sq Visit type - Emergency Visit Emergency Visit: Yes ED Registration Date: 06/16/17 Care time: The patient presented to the Emergency Department on the above date and was hospitalized for further evaluation of their emergent condition. - New Patient This patient is new to me today: No - Critical Care Critical Care patient: No
[2017-06-19] MEDS: ATORVASTATIN CA 10 MG TABLET (FP) PO SCH (21:51)
[2017-06-19] MEDS: DONEPEZIL HCL 5 MG TABLET (FP) PO SCH (21:51)
[2017-06-20] MEDS: HEPARIN NA (PORCINE) 5,000 UNITS/ML 1ML VIAL SQ SCH ×3 (06:18→21:28)
[2017-06-20 07:03] LABS: ALBUMIN 2.2 g/dl (3.4-5.0); ANION GAP 7 (8-16); BLOOD UREA NITROGEN 28 mg/dL (7-18); CALCIUM 7.6 mg/dL (8.5-10.1); CHLORIDE 99 mmol/L (98-107); CO2 31 mmol/L (21-32); GLUCOSE,RANDOM 80 mg/dL (74-106); POTASSIUM 3.7 mmol/L (3.5-5.1); SODIUM 137 mmol/L (136-145)
[2017-06-20 07:06] LABS: ALK PHOS 73 U/L (45-117); BILIRUBIN,TOTAL 0.6 mg/dL (0.2-1.0); CREATININE 1.1 mg/dL (0.55-1.02); SGOT/AST 93 U/L (15-37); SGPT/ALT 78 U/L (12-78); TOT PROT 5.4 g/dl (6.4-8.2)
[2017-06-20 07:08] LABS: HEMATOCRIT 44.1 % (32.4-45.2); HEMOGLOBIN 14.5 GM/dL (10.7-15.3); MCH 30.7 pg (25.7-33.7); MCHC 32.9 g/dl (32.0-36.0); MEAN CELL VOLUME 93.4 fl (80-96); PLATELET COUNT 162 K/MM3 (134-434); RBC 4.72 M/mm3 (3.60-5.2); RDW 14.7 % (11.6-15.6)
[2017-06-20] MEDS: ALBUTEROL SO4 2.5/IPRATROPIUM 0.5 INH SOL 3 ML VIAL.NEB. NEB SCH ×4 (07:11→20:22)
[2017-06-20] MEDS ORDERED: PT OWN MED DRAWER 7, Y5N ONE (09:58)
[2017-06-20] MEDS ORDERED: FUROSEMIDE 40 MG TABLET (FP) PO SCH (10:00)
[2017-06-20] MEDS: CEFTRIAXONE 1 G/50 ML PREMIX 50 ML IVPB SCH (10:04)
[2017-06-20] MEDS: AZITHROMYCIN IVPB 250 MG in DEXTROSE 5%-WATER - 250 ML IVPB SCH (11:17)
--- NOTE | 2017-06-20 11:41 | EKG ---
Test Reason : Blood Pressure : / mmHG Vent. Rate : 071 BPM Atrial Rate : 071 BPM P-R Int : 196 ms QRS Dur : 082 ms QT Int : 452 ms P-R-T Axes : 037 268 091 degrees QTc Int : 491 ms SINUS RHYTHM WITH PREMATURE SUPRAVENTRICULAR COMPLEXES RIGHT VENTRICULAR HYPERTROPHY POSSIBLE LATERAL INFARCT , AGE UNDETERMINED INFERIOR INFARCT , AGE UNDETERMINED ABNORMAL ECG NO PREVIOUS ECGS AVAILABLE Confirmed by MD Dk, Lyndon ([id number]) on 06/20/2017 11:41:05 AM Referred By: Confirmed By:Lyndon Root MD
--- NOTE | 2017-06-20 14:26 | PN ---
Physical Exam: SUBJECTIVE: Patient seen and examined. No acute events overnight. Patient offers no new complaints. Says her breathing and coughing has slightly improved today. Denies chest pain, dizziness, nausea, vomiting, chest pain. OBJECTIVE: Vital Signs Period Temp Pulse Resp BP Sys/Eastman Pulse Ox Last 24 Hr 97.3 F-97.9 F 68-82 18-20 119-126/61-76 95 GENERAL: The patient is awake, alert, and fully oriented, in no acute distress. HEAD: Normal with no signs of trauma. EYES: extraocular movements intact, conjunctiva clear. ENT:oropharynx clear without exudates, moist mucous membranes. NECK: supple. LUNGS: 2L NC, ins/exp wheezing b/l, diffuse rales and rhonchi HEART: Regular rate and rhythm, S1, S2 without murmur, rub or gallop. ABDOMEN: Soft, nontender, nondistended, normoactive bowel sounds, no guarding, no rebound, no hepatosplenomegaly, no masses. EXTREMITIES: 2+ pulses, warm, well-perfused, no edema. PSYCH: Normal mood, normal affect. Laboratory Results - last 24 hr 06/20/17 06/20/17 05:35 05:35 WBC 4.0 D RBC 4.72 Hgb 14.5 Hct 44.1 MCV 93.4 MCH 30.7 MCHC 32.9 RDW 14.7 Plt Count 162 MPV 8.0 Sodium 137 Potassium 3.7 Chloride 99 Carbon Dioxide 31 Anion Gap 7 L BUN 28 H Creatinine 1.1 H Creat Clearance w eGFR 46.88 Random Glucose 80 Calcium 7.6 L Total Bilirubin 0.6 AST 93 H ALT 78 Alkaline Phosphatase 73 Total Protein 5.4 L Albumin 2.2 L Active Medications Generic Name Dose Route Start Last Admin Trade Name Freq PRN Reason Stop Dose Admin Albuterol/Ipratropium 1 amp 06/16/17 19:18 06/17/17 06:05 Duoneb - NEB 1 amp Q4H PRN Administration SHORTNESS OF BREATH Albuterol/Ipratropium 1 amp 06/17/17 16:00 06/20/17 11:45 Duoneb - NEB 1 amp RQID MARIANA Administration Amoxicillin/Clavulanate Potassium 1 tab 06/21/17 17:30 Augmentin - 500mg Tablet PO BID@0800,1730 MARIANA Atorvastatin Calcium 10 mg 06/16/17 22:00 06/19/17 21:51 Lipitor - PO 10 mg HS MARIANA Administration Donepezil HCl 10 mg 06/18/17 15:11 06/19/17 21:51 Aricept - PO 10 mg HS MARIANA Administration Furosemide 40 mg 06/20/17 16:00 Lasix Injection - IVPUSH DAILY MARIANA Heparin Sodium (Porcine) 5,000 unit 06/16/17 22:00 06/20/17 06:18 Heparin - SQ 5,000 unit TID MARIANA Administration Azithromycin 250 mg/ Dextrose 250 mls @ 250 mls/hr 06/17/17 10:00 06/20/17 11 :17 IVPB 250 mls/hr DAILY MARIANA Administration ASSESSMENT/PLAN: 86 yo F with PMH CHF, Cerebral aneurysm, HTN and dyslipidemia presented with productive cough x5 days. #Acute on Chronic CHF exacerbation -IV Lasix 40mg daily -Strict I/O's -Daily weights -Echo: 40-45% Ejection fraction -Duonebs PRN #Bilateral Pneumonia -Cont. IV abx: Azithromycin Day 5 -Start Augmentin 500mg BID (Day 1) -Completed 5 days Ceftriaxone -CT chest: B/l Upper lobe and left lower lobe opacities -afebrile, no leukocytosis -O2 therapy, maintain Sat>90% -Ucx, Bcx negative -Chest PT #KRISTEL -resolved -likely due prerenal -will monitor BMP -avoid nephrotoxins -AceI held #Tropinemia -trended down -No ekg changes -FU echo tomorrow #Mechanical Fall -PT assessment -will require NEO on discharge -Pre/post in AM #Dementia -cont home med: Aricept -held Seroquel due to lethargy #Dyslipidemia -cont home med: Lipitor 10mg #DVT ppx -Hep sq Visit type - Emergency Visit Emergency Visit: Yes ED Registration Date: 06/16/17 Care time: The patient presented to the Emergency Department on the above date and was hospitalized for further evaluation of their emergent condition. - New Patient This patient is new to me today: No - Critical Care Critical Care patient: No
--- NOTE | 2017-06-20 14:52 | PN ---
Teaching Attending Note Name of Resident: Teresa Gant ATTENDING PHYSICIAN STATEMENT Time of evaluation: 11;35 AM I saw and evaluated the patient. I reviewed the resident's note and discussed the case with the resident. I agree with the resident's findings and plan as documented. SUBJECTIVE: Patient seen and examined. breathing with some improvement, still weak, no new complaints. OBJECTIVE: Vital Signs Period Temp Pulse Resp BP Sys/Eastman Pulse Ox Last 24 Hr 97.3 F-97.9 F 68-82 18-20 119-126/61-76 95 Intake & Output 06/17/17 06/18/17 06/19/17 06/20/17 23:59 23:59 23:59 23:59 Intake Total 250 100 550 Balance 250 100 550 Weight 108 lb 8 oz 99 lb 97 lb 4 oz General: sitting in bed, with some audible wheezing and coarse rales, no use of acessory muscles of respiration CVS;S1S2 regular Chest: bilateral scattered expiratory wheezing with coarse rales, positive air entry Extremities: trace pedal edema Abdomen: soft, NT, ND, positive bowel sounds Neuro: AAOx2 (not to time but able to repeat after reading on board), facial symmetry, power 4/5 (generalized weak but non focal) Home Medication List Medication Instructions Recorded Confirmed Type Donepezil HCl [Aricept -] 0 mg PO DAILY 06/16/17 06/16/17 History Furosemide [Lasix -] 20 mg PO DAILY 06/16/17 06/16/17 History Lisinopril 10 mg PO DAILY 06/16/17 06/16/17 History Simvastatin 20 mg PO DAILY 06/16/17 06/16/17 History Active Medications Generic Name Dose Route Start Last Admin Trade Name Freq PRN Reason Stop Dose Admin Albuterol/Ipratropium 1 amp 06/16/17 19:18 06/17/17 06:05 Duoneb - NEB 1 amp Q4H PRN Administration SHORTNESS OF BREATH Albuterol/Ipratropium 1 amp 06/17/17 16:00 06/20/17 11:45 Duoneb - NEB 1 amp RQID MARIANA Administration Amoxicillin/Clavulanate Potassium 1 tab 06/21/17 17:30 Augmentin - 500mg Tablet PO BID@0800,1730 MARIANA Atorvastatin Calcium 10 mg 06/16/17 22:00 06/19/17 21:51 Lipitor - PO 10 mg HS MARIANA Administration Donepezil HCl 10 mg 06/18/17 15:11 06/19/17 21:51 Aricept - PO 10 mg HS MARIANA Administration Furosemide 40 mg 06/20/17 16:00 Lasix Injection - IVPUSH DAILY [facility] Heparin Sodium (Porcine) 5,000 unit 06/16/17 22:00 06/20/17 06:18 Heparin - SQ 5,000 unit TID MARIANA Administration Laboratory Results - last 24 hr 06/20/17 06/20/17 05:35 05:35 WBC 4.0 D RBC 4.72 Hgb 14.5 Hct 44.1 MCV 93.4 MCH 30.7 MCHC 32.9 RDW 14.7 Plt Count 162 MPV 8.0 Sodium 137 Potassium 3.7 Chloride 99 Carbon Dioxide 31 Anion Gap 7 L BUN 28 H Creatinine 1.1 H Creat Clearance w eGFR 46.88 Random Glucose 80 Calcium 7.6 L Total Bilirubin 0.6 AST 93 H ALT 78 Alkaline Phosphatase 73 Total Protein 5.4 L Albumin 2.2 L Microbiology 06/16/17 16:00 Blood - Peripheral Venous Blood Culture - Preliminary NO GROWTH OBTAINED AFTER 72 HOURS, INCUBATION TO CONTINUE FOR 2 DAYS. 06/16/17 16:00 Blood - Peripheral Venous Blood Culture - Preliminary NO GROWTH OBTAINED AFTER 72 HOURS, INCUBATION TO CONTINUE FOR 2 DAYS. 06/16/17 17:10 Urine - Urine Clean Catch Urine Culture - Final NO GROWTH OBTAINED 2D echo reviewed ASSESSMENT AND PLAN: 86 yo F with PMH CHF, Cerebral aneurysm, HTN and dyslipidemia presented with productive cough x5 days, found with multifocal PNA and acute systolic heart failure exacerbation -Acute systolic heart failure exacerbation -Multifocal PNA vs aspiration -NSTEMI type II, suspect demand induced from above -KRISTEL, suspect prerenal from CHF -Mechanical fall -Hypokalemia -Dementia/sundowning -Hypokalemia/hypomagnesemia -Dyslipidemia Plan: 2D echo reviewed, ?h/o CHF. Patient with audible wheezing and coarse rales. Change lasix to 40 mg IV daily, retrieve prior 2d echo and cardiac history. Inpatient cardiac input accordingly. Mild troponin elevation on admission, trended down, 2D echo reviewed. Place on ASA 81 mg, continue statin. Hold off beta carlos till further info available. hold ACEi for now while monitoring renal function on diuresis. No fevers/WBC on admission, Multifocal findings, ?Aspiration/?Alveolar edema. s/ p 5 days of ceftriaxone/azithromycin. D/c azithromycin, transition to augmentin for 7-10 day course to avoid additional fluid load. positive exsmoker. Nebs prn, hold off on steroids for now. Lethargy improved after withholding seroquel, avoid for now. Fall precautions. DVTPPX with heparin. PT eval, refuses RW use at home. Anticipate NEO on d/c once medical issues improve. Follow up with CM. Plan discussed with patient in detail, all questions answered.
[2017-06-20] MEDS: FUROSEMIDE 40 MG/4 ML INJECTABLE VIAL IVPUSH SCH (15:55)
[2017-06-20] MEDS: ATORVASTATIN CA 10 MG TABLET (FP) PO SCH (21:28)
[2017-06-20] MEDS: DONEPEZIL HCL 5 MG TABLET (FP) PO SCH (21:28)
[2017-06-21] MEDS: ALBUTEROL SO4 2.5/IPRATROPIUM 0.5 INH SOL 3 ML VIAL.NEB. NEB SCH ×3 (01:00→20:54)
[2017-06-21] MEDS: HEPARIN NA (PORCINE) 5,000 UNITS/ML 1ML VIAL SQ SCH ×3 (04:59→21:39)
[2017-06-21 09:41] LABS: BASO % 0.4 % (0-2.0); EOS % 0.1 % (0-4.5); HEMATOCRIT 49.1 % (32.4-45.2); LYMPH % 23.6 % (8-40); MCH 30.8 pg (25.7-33.7); MCHC 32.6 g/dl (32.0-36.0); MEAN CELL VOLUME 94.3 fl (80-96); MEAN PLT VOLUME 7.9 fl (7.5-11.1); MONO % 13.1 % (3.8-10.2); NEUT % 62.8 % (42.8-82.8); PLATELET COUNT 192 K/MM3 (134-434); RBC 5.21 M/mm3 (3.60-5.2); RDW 14.8 % (11.6-15.6); WHITE BLOOD COUNT 3.9 K/mm3 (4.0-10.0)
[2017-06-21] MEDS ORDERED: AMOX TR/POT CLAV 500MG/125MG TABLETS (FP) PO SCH ×2 (09:55→17:30)
[2017-06-21 10:13] LABS: ALBUMIN 2.3 g/dl (3.4-5.0); ANION GAP 5 (8-16); BLOOD UREA NITROGEN 27 mg/dL (7-18); CHLORIDE 96 mmol/L (98-107); CO2 35 mmol/L (21-32); GLUCOSE,RANDOM 113 mg/dL (74-106); POTASSIUM 3.6 mmol/L (3.5-5.1); SGOT/AST 111 U/L (15-37); SGPT/ALT 100 U/L (12-78); SODIUM 136 mmol/L (136-145)
[2017-06-21 10:15] LABS: ALK PHOS 83 U/L (45-117); BILIRUBIN,TOTAL 0.7 mg/dL (0.2-1.0); TOT PROT 5.9 g/dl (6.4-8.2)
[2017-06-21] MEDS: FUROSEMIDE 40 MG/4 ML INJECTABLE VIAL IVPUSH SCH (11:57)
[2017-06-21] MEDS: AMOX TR/POT CLAV 500MG/125MG TABLETS (FP) PO SCH ×2 (12:04→18:05)
--- NOTE | 2017-06-21 12:49 | PN ---
Teaching Attending Note Name of Resident: Teresa Gant ATTENDING PHYSICIAN STATEMENT Time of evaluation: 10:15 AM I saw and evaluated the patient. I reviewed the resident's note and discussed the case with the resident. I agree with the resident's findings and plan as documented. SUBJECTIVE: Patient seen and examined, breathing improved, Ox2, no pain or new complaints. Feels better today. OBJECTIVE: Vital Signs Period Temp Pulse Resp BP Sys/Eastman Pulse Ox Last 24 Hr 97.3 F-98.4 F 70-99 18-20 108-131/58-79 95-95 Intake & Output 06/18/17 06/19/17 06/20/17 06/21/17 23:59 23:59 23:59 23:59 Intake Total 100 550 960 Balance 100 550 960 Weight 99 lb 97 lb 4 oz 98 lb 9.6 oz General: lying in bed no acute distress, better today, no audible rales or rhoncherous breath sounds Chest: improved air entry bilaterally, no wheezing, few basilar rales, decreased but improved effort Abdomen: soft, NT, ND, positive bowel sounds extremities: no edema Neuro AAOx2 (not to time), unchanged exam otherwise Home Medication List Medication Instructions Recorded Confirmed Type Donepezil HCl [Aricept -] 0 mg PO DAILY 06/16/17 06/16/17 History Furosemide [Lasix -] 20 mg PO DAILY 06/16/17 06/16/17 History Lisinopril 10 mg PO DAILY 06/16/17 06/16/17 History Simvastatin 20 mg PO DAILY 06/16/17 06/16/17 History Active Medications Generic Name Dose Route Start Last Admin Trade Name Freq PRN Reason Stop Dose Admin Albuterol/Ipratropium 1 amp 06/16/17 19:18 06/17/17 06:05 Duoneb - NEB 1 amp Q4H PRN Administration SHORTNESS OF BREATH Albuterol/Ipratropium 1 amp 06/17/17 16:00 06/20/17 20:22 Duoneb - NEB Not Given RQID MARIANA Amoxicillin/Clavulanate Potassium 1 tab 06/21/17 12:00 06/21/17 12:04 Augmentin - 500mg Tablet PO 1 tab BID@0800,1730 MARIANA Administration Atorvastatin Calcium 10 mg 06/16/17 22:00 06/20/17 21:28 Lipitor - PO 10 mg HS MARIANA Administration Donepezil HCl 10 mg 06/18/17 15:11 06/20/17 21:28 Aricept - PO 10 mg HS MARIANA Administration Furosemide 40 mg 06/20/17 16:00 06/21/17 11:57 Lasix Injection - IVPUSH 40 mg DAILY MARIANA Administration Heparin Sodium (Porcine) 5,000 unit 06/16/17 22:00 06/21/17 04:59 Heparin - SQ Not Given TID [facility] Laboratory Results - last 24 hr 06/21/17 06/21/17 09:15 09:15 WBC 3.9 L RBC 5.21 H Hgb 16.0 H D Hct 49.1 H MCV 94.3 MCH 30.8 MCHC 32.6 RDW 14.8 Plt Count 192 MPV 7.9 Neutrophils % 62.8 Lymphocytes % 23.6 Monocytes % 13.1 H Eosinophils % 0.1 D Basophils % 0.4 Sodium 136 Potassium 3.6 Chloride 96 L Carbon Dioxide 35 H Anion Gap 5 L BUN 27 H Creatinine 1.0 Creat Clearance w eGFR 52.33 Random Glucose 113 H Calcium 8.0 L Total Bilirubin 0.7 AST 111 H ALT 100 H Alkaline Phosphatase 83 Total Protein 5.9 L Albumin 2.3 L Microbiology 06/16/17 16:00 Blood - Peripheral Venous Blood Culture - Preliminary NO GROWTH OBTAINED AFTER 96 HOURS, INCUBATION TO CONTINUE FOR 1 DAYS. 06/16/17 16:00 Blood - Peripheral Venous Blood Culture - Preliminary NO GROWTH OBTAINED AFTER 96 HOURS, INCUBATION TO CONTINUE FOR 1 DAYS. 06/16/17 17:10 Urine - Urine Clean Catch Urine Culture - Final NO GROWTH OBTAINED ASSESSMENT AND PLAN: 86 yo F with PMH CHF, Cerebral aneurysm, HTN and dyslipidemia presented with productive cough x5 days, found with multifocal PNA and acute systolic heart failure exacerbation -Acute systolic heart failure exacerbation -Multifocal PNA vs aspiration -NSTEMI type II, suspect demand induced from above -KRISTEL, suspect prerenal from CHF -Mechanical fall -Hypokalemia -Dementia/sundowning -Hypokalemia/hypomagnesemia -Dyslipidemia Plan: Clinically improved today. Continue IV lasix. Antibiotics changed to Augmentin ( day 6). finish 7-10 day course. Multifocal PNA vs aspiration. Speech/swallow eval and aspiration precautions. Lasix 40 mg IV daily, strict I/Os, daily weights, retrieve prior cardiac history , if worsened EF, inpatient cardiology eval. Mild troponin elevation on admission, trended down, 2D echo reviewed. Place on ASA 81 mg, continue statin. Hold off beta carlos till further info available. hold ACEi for now while monitoring renal function on diuresis. positive exsmoker. Nebs prn, hold off on steroids for now. Lethargy improved after withholding seroquel, avoid for now. Fall precautions. Frequent orientation to environment. DVTPPX with heparin. PT eval, refuses RW use at home. Anticipate NEO on d/c once medical issues improve. Follow up with CM. Anticipate 1-2 days if continues to improve pending prior cardiac history. Plan discussed with patient in detail, all questions answered.
--- NOTE | 2017-06-21 16:47 | CON.CARD ---
Consult Consult Specialty:: Cardiology Reason for Consultation:: CHF - History of Present Illness Chief Complaint: Presently comfortable History of Present Illness: This is an 86 year old female with a PMH of dementia, HTn, and HLD. She presented with a cough and CXR showed cardiomegally and nodular infiltrate. Presently she is comfortable and denies cardiac symptoms. Echocardiogram 06/18/17: Moderate LVH Moderately reduced LV function EF 40 - 45% Normal RV function Mild to moderate TR - Past Medical History ...: No - Alcohol/Substance Use Hx Alcohol Use: Yes (occassional beer) - Smoking History Smoking history: Never smoked Have you smoked in the past 12 months: No Home Medications - Allergies Allergies/Adverse Reactions: Allergies Allergy/AdvReac Type Severity Reaction Status Date / Time No Known Allergies Allergy Verified 06/16/17 14:49 - Home Medications Home Medications: Ambulatory Orders Donepezil HCl [Aricept -] 0 mg PO DAILY 06/16/17 Furosemide [Lasix -] 20 mg PO DAILY 06/16/17 Lisinopril 10 mg PO DAILY 06/16/17 Simvastatin 20 mg PO DAILY 06/16/17 Review of Systems Findings/Remarks: As per HPI Vital Signs: Vital Signs Temperature 98.4 F 06/21/17 14:00 Pulse Rate 75 06/21/17 14:00 Respiratory Rate 20 06/21/17 14:00 Blood Pressure 136/77 06/21/17 14:00 O2 Sat by Pulse Oximetry (%) 95 06/21/17 09:00 Constitutional: Yes: No Distress, Thin HENT: Yes: WNL Neck: Yes: WNL Respiratory: Yes: Rales (Bibasilar rales) Gastrointestinal: Yes: Soft Cardiovascular: Yes: Regular Rate and Rhythm (NL S1S2, 2/6 HSM at the apex that varies with respiration) Edema: No Neurological: Yes: Alert, Oriented (Non focal) - Other Data Labs, Other Data: CBC, BMP 06/21/17 09:15 06/21/17 09:15 Assessment/Plan 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
--- NOTE | 2017-06-21 17:04 | PN ---
Physical Exam: SUBJECTIVE: Patient seen and examined. No acute events overnight except for some confusion, but patient at baseline. Patient offers no new complaints. Says her breathing is better today. Denies abdominal pain, chest pain, nausea, vomiting. OBJECTIVE: Vital Signs Period Temp Pulse Resp BP Sys/Eastman Pulse Ox Last 24 Hr 97.3 F-98.4 F 70-88 20-20 111-136/58-79 95-95 lying in bed no acute distress, better today, no audible rales or rhoncherous breath sounds Chest: improved air entry bilaterally, no wheezing, few basilar rales, decreased but improved effort GENERAL: A/o x 2 in NAD HEAD: Normal with no signs of trauma. EYES: extraocular movements intact, conjunctiva clear. ENT:oropharynx clear without exudates, moist mucous membranes. NECK: supple. LUNGS: No audible rales or rhonchi. improved. no wheezing today. Mild rales. Improved effort HEART: Regular rate and rhythm, S1, S2 without murmur, rub or gallop. ABDOMEN: Soft, nontender, nondistended, normoactive bowel sounds, no guarding, no rebound, no hepatosplenomegaly, no masses. EXTREMITIES: 2+ pulses, warm, well-perfused, no edema. PSYCH: Normal mood, normal affect. Laboratory Results - last 24 hr 06/21/17 06/21/17 09:15 09:15 WBC 3.9 L RBC 5.21 H Hgb 16.0 H D Hct 49.1 H MCV 94.3 MCH 30.8 MCHC 32.6 RDW 14.8 Plt Count 192 MPV 7.9 Neutrophils % 62.8 Lymphocytes % 23.6 Monocytes % 13.1 H Eosinophils % 0.1 D Basophils % 0.4 Sodium 136 Potassium 3.6 Chloride 96 L Carbon Dioxide 35 H Anion Gap 5 L BUN 27 H Creatinine 1.0 Creat Clearance w eGFR 52.33 Random Glucose 113 H Calcium 8.0 L Total Bilirubin 0.7 AST 111 H ALT 100 H Alkaline Phosphatase 83 Total Protein 5.9 L Albumin 2.3 L Active Medications Generic Name Dose Route Start Last Admin Trade Name Freq PRN Reason Stop Dose Admin Albuterol/Ipratropium 1 amp 06/16/17 19:18 06/17/17 06:05 Duoneb - NEB 1 amp Q4H PRN Administration SHORTNESS OF BREATH Albuterol/Ipratropium 1 amp 06/17/17 16:00 06/21/17 01:00 Duoneb - NEB 1 amp RQID MARIANA Administration Amoxicillin/Clavulanate Potassium 1 tab 06/21/17 12:00 06/21/17 12:04 Augmentin - 500mg Tablet PO 1 tab BID@0800,1730 MARIANA Administration Aspirin 81 mg 06/22/17 10:00 Asa - PO DAILY MARIANA Atorvastatin Calcium 10 mg 06/16/17 22:00 06/20/17 21:28 Lipitor - PO 10 mg HS MARIANA Administration Donepezil HCl 10 mg 06/18/17 15:11 06/20/17 21:28 Aricept - PO 10 mg HS MARIANA Administration Furosemide 40 mg 06/20/17 16:00 06/21/17 11:57 Lasix Injection - IVPUSH 40 mg DAILY MARIANA Administration Heparin Sodium (Porcine) 5,000 unit 06/16/17 22:00 06/21/17 14:57 Heparin - SQ Not Given TID MARIANA Lisinopril 10 mg 06/22/17 10:00 Prinivil PO DAILY [facility] ASSESSMENT/PLAN: 86 yo F with PMH CHF, Cerebral aneurysm, HTN and dyslipidemia presented with productive cough x5 days. #Acute on Chronic CHF exacerbation -IV Lasix 40mg daily -Strict I/O's -Daily weights -Echo: 40-45% Ejection fraction -Duvivianbs PRN -Dr. Hicks consulted (Patient's [employer]) #Bilateral Pneumonia -Completed Azithromycin,Ceftriaxone 5 days -ContAugmentin 500mg BID. Day 6 Abx -CT chest: B/l Upper lobe and left lower lobe opacities -afebrile, no leukocytosis -O2 therapy, maintain Sat>90% -Ucx, Bcx negative -Chest PT #KRISTEL -resolved -likely due prerenal -will monitor BMP -avoid nephrotoxins -Restart AceI #Tropinemia -trended down -No ekg changes -FU echo tomorrow #Mechanical Fall -will require NEO on discharge -Pre/post #Dementia -cont home med: Aricept -held Seroquel due to lethargy #Dyslipidemia -cont home med: Lipitor 10mg #DVT ppx -Hep sq Visit type - Emergency Visit Emergency Visit: Yes ED Registration Date: 06/16/17 Care time: The patient presented to the Emergency Department on the above date and was hospitalized for further evaluation of their emergent condition. - New Patient This patient is new to me today: No - Critical Care Critical Care patient: No
--- NOTE | 2017-06-21 17:20 | CONSULT ---
Admitting History and Physical - Past Medical History ...: No - Smoking History Smoking history: Never smoked Have you smoked in the past 12 months: No - Alcohol/Substance Use Hx Alcohol Use: Yes (occassional beer) History - Admission Reason For Visit: PNEUMONIA - Hearing Hearing: Normal Hearing Aide: No With Patient: No Speech Evaluation - Communication Primary Language: MONTSERRATIAN Communication: Yes: Within Normal Limits Oral Expression Ability: Yes: No Impairment - Speech Production Apraxia: No Able to Make Needs Known: Yes: WNL Intelligibility: Yes: WNL - Speech Characteristics Voice Loudness: Normal Voice Pitch: Yes: Normal Voice Phonatory-based Quality: Yes: Normal Speech Pattern: Normal Nasal Resonance: Normal Articulation: Yes: Precise Rate of Speech: Intact Voice Comment: Vocal quality and airway protection is WNL - Language/Auditory Comprehension Follows: Yes: 1 Stage Simple Commands (WFL) Observation: Able to respond to yes/no queries: Yes, Yes/No Confusion: No, Comprehends Conversational Speech: Yes, Benefits from Slow Speech: Yes, Benefits from Repetiton: No, Benefits from Increased Volume of Speech: No - Language/Verbal Expression Able to Respond to Simple Queries: Yes: WNL Able to Communicate Wants and Needs: Yes: WNL Functional Communication Status: Yes: WNL Aware of Errors: Yes Attempts to Correct Errors: Yes Use of Gestures: No Written Expression: Not examined Oral Expression: WFL Reading Comprehension: Not examined Calculations: Not examined Attention: Yes: Intact - Memory/Perception [facility] Memory: Yes: Mildly Impaired Short Term Memory: Yes: Mildly Impaired - Swallow Evaluation/Bedside Assessment Current Nutritional Intake: Regular (Sodium controlled), Thin Liquids Oral Secretions: Yes: WFL Tracheostomy Present: No Patient on Ventilator: No Dentition: Yes: Adequate Facial Symmetry at Rest: Symmetrical Facial Symmetry on Retraction: Symmetrical Facial Movement: Controlled Sensation: Normal Facial Comment: WFL for speech and swallow purposes. Jaw Position: Closed at Rest Against Resistance Opening: Weak Against Resistance Closing: Weak Pucker Lips: Normal Lips, Comment: WFL for speech and swallow purposes. Lingual Movement: Reduced Protrusion Lingual Speed of Movement: Normal Lingual Movement Strgth Against Opposition: Normal Lingual Movement Characteristics: Normal Lingual Comment: WFL for speech and swallow purposes. Soft Palate Description: Normal Color Hard Palate Description: Normal Color Gag Reflex: Strong Bite Reflex: Present Velopharyngeal Movement: Normal Laryngeal Elevation: WFL Laryngeal Movement: Able to Palpate Needs Assistance: Yes Rate of Intake: WFL Bolus Size: Small Labial Seal: WFL Chewing: WFL Oral Prep Time: WFL A-P Transit: WFL Pocketing: None Timing of Swallow: Delayed (2-4 second) Coughing/Throat Clear: No Change in Voice: No Other Findings/Remarks: 86 yo female seen at bedside for swallow eval to r/o dysphagia. Family member present for this session and provided medical history. Pt is verbal, A&Ox2 cooperative. Admitted to [facility] for general weakness and PNA. 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 PMHX includes HTN dementia HLD and KRISTEL. Pt demonstrates adequate vocal quality and airway protection. Current diet: regular solids with thin liquids. Family reported that over the year pt has shown a decrease in appetite. Pt given po trials of pureed and regular solids with assistance revealed good acceptance, increased mastication, adequate bolus formation and transport. Pharyngeal swallow are mildly delayed (2-4 seconds average) with no cough or changes in respiration. Thin liquids trials were unremarkable for aspiration at this time. Recommendations - Speech Evaluation, Impression/Plan Impression: 86 yo female present with mild anisha-pharyngeal dysphagia that is consistent with presbyphagia. No evidence of aspiration on any consistency offered at this time. Limited speech sample provided at this session. Manager Outpatient Goals: tolerate the least restrictive diet without s/s of aspiration. Short Term Goals: tolerate purees, regular solids thin liquids without s/s of aspiration. - Dysphagia Impressions/Plan Swallowing Skills: Impaired Dysphagia Impressions: Mild Impairment, Risk of Aspiration *Silent aspiration: cannot be R/O at bedside Dysphagia Treatment Plan: Small Bites, Safe Rate, 1/2 tsp. at a time, Elevate HOB during feed, Other (Alternate liquids for every 2-3 bites of solids. Monitor nutritional intake and pulmonary status.) Dysphagia Evaluation Summary: Pt is able to tolerate purees, regular (sodium controlled) solids and thin liquids without s/s of aspiration at this time. Continue current diet and observe standard aspiration precautions. Result given to dry pan charger and to pcp via chart. - Recommendations Diet Consistency: Regular (sodium controlled) Medication Administration: Crushed with applesauce Liquids: Thin Liquids
[2017-06-21] MEDS: ATORVASTATIN CA 10 MG TABLET (FP) PO SCH (21:39)
[2017-06-21] MEDS: DONEPEZIL HCL 5 MG TABLET (FP) PO SCH (21:39)
[2017-06-22] MEDS: HEPARIN NA (PORCINE) 5,000 UNITS/ML 1ML VIAL SQ SCH ×3 (05:19→22:25)
[2017-06-22 07:08] LABS: HEMATOCRIT 47.3 % (32.4-45.2); HEMOGLOBIN 15.8 GM/dL (10.7-15.3); MCH 31.5 pg (25.7-33.7); MCHC 33.5 g/dl (32.0-36.0); MEAN CELL VOLUME 93.9 fl (80-96); PLATELET COUNT 208 K/MM3 (134-434); RBC 5.03 M/mm3 (3.60-5.2); RDW 14.4 % (11.6-15.6); WHITE BLOOD COUNT 3.9 K/mm3 (4.0-10.0)
[2017-06-22] MEDS: ALBUTEROL SO4 2.5/IPRATROPIUM 0.5 INH SOL 3 ML VIAL.NEB. NEB SCH ×2 (07:25→11:10)
[2017-06-22 07:41] LABS: ALBUMIN 2.3 g/dl (3.4-5.0); ALK PHOS 80 U/L (45-117); ANION GAP 7 (8-16); BILIRUBIN,TOTAL 0.8 mg/dL (0.2-1.0); BLOOD UREA NITROGEN 33 mg/dL (7-18); CALCIUM 7.5 mg/dL (8.5-10.1); CHLORIDE 97 mmol/L (98-107); CO2 34 mmol/L (21-32); CREATININE 1.1 mg/dL (0.55-1.02); GLUCOSE,RANDOM 99 mg/dL (74-106); PHOSPHOROUS 2.6 mg/dL (2.5-4.9); POTASSIUM 3.6 mmol/L (3.5-5.1); SGOT/AST 98 U/L (15-37); SGPT/ALT 95 U/L (12-78); SODIUM 138 mmol/L (136-145); TOT PROT 5.7 g/dl (6.4-8.2)
--- NOTE | 2017-06-22 08:22 | PN ---
Teaching Attending Note Name of Resident: Teresa Gant ATTENDING PHYSICIAN STATEMENT Time of evaluation: 11:15 AM I saw and evaluated the patient. I reviewed the resident's note and discussed the case with the resident. I agree with the resident's findings and plan as documented with exceptions mentioned below. SUBJECTIVE: Patient seen and examined, breathing improved. OX2, not to time, no complaints otherwise. OBJECTIVE: Vital Signs Period Temp Pulse Resp BP Sys/Eastman Pulse Ox Last 24 Hr 97.4 F-98.8 F 70-83 18-20 111-136/59-80 95-95 Intake & Output 06/19/17 06/20/17 06/21/17 06/22/17 23:59 23:59 23:59 23:59 Intake Total 550 960 Balance 550 960 Weight 99 lb 97 lb 4 oz 98 lb 9.6 oz 91 lb 3.2 oz General: sitting in bed, no acute distress Chest: no rales or wheezing currently, markedly improved air entry Abdomen: soft, NT, ND, positive bowel sounds Home Medication List Medication Instructions Recorded Confirmed Type Donepezil HCl [Aricept -] 0 mg PO DAILY 06/16/17 06/16/17 History Furosemide [Lasix -] 20 mg PO DAILY 06/16/17 06/16/17 History Lisinopril 10 mg PO DAILY 06/16/17 06/16/17 History Simvastatin 20 mg PO DAILY 06/16/17 06/16/17 History Active Medications Generic Name Dose Route Start Last Admin Trade Name Freq PRN Reason Stop Dose Admin Albuterol/Ipratropium 1 amp 06/17/17 16:00 06/22/17 07:25 Duoneb - NEB 1 amp RQID MARIANA Administration Amoxicillin/Clavulanate Potassium 1 tab 06/21/17 12:00 06/21/17 18:05 Augmentin - 500mg Tablet PO 1 tab BID@0800,1730 MARIANA Administration Aspirin 81 mg 06/22/17 10:00 Asa - PO DAILY MARIANA Atorvastatin Calcium 10 mg 06/16/17 22:00 06/21/17 21:39 Lipitor - PO Not Given HS MARIANA Donepezil HCl 10 mg 06/18/17 15:11 06/21/17 21:39 Aricept - PO Not Given HS MARIANA Furosemide 40 mg 06/20/17 16:00 06/21/17 11:57 Lasix Injection - IVPUSH 40 mg DAILY [facility] Administration Heparin Sodium (Porcine) 5,000 unit 06/16/17 22:00 06/22/17 05:19 Heparin - SQ Not Given TID [facility] Lisinopril 10 mg 06/22/17 10:00 Prinivil PO DAILY [facility] Laboratory Results - last 24 hr 06/21/17 06/21/17 06/22/17 09:15 09:15 05:35 WBC 3.9 L 3.9 L RBC 5.21 H 5.03 Hgb 16.0 H D 15.8 H Hct 49.1 H 47.3 H MCV 94.3 93.9 MCH 30.8 31.5 MCHC 32.6 33.5 RDW 14.8 14.4 Plt Count 192 208 MPV 7.9 8.0 Neutrophils % 62.8 Lymphocytes % 23.6 Monocytes % 13.1 H Eosinophils % 0.1 D Basophils % 0.4 Sodium 136 Potassium 3.6 Chloride 96 L Carbon Dioxide 35 H Anion Gap 5 L BUN 27 H Creatinine 1.0 Creat Clearance w eGFR 52.33 Random Glucose 113 H Calcium 8.0 L Total Bilirubin 0.7 AST 111 H ALT 100 H Alkaline Phosphatase 83 Total Protein 5.9 L Albumin 2.3 L Microbiology 06/16/17 16:00 Blood - Peripheral Venous Blood Culture - Final NO GROWTH AFTER 5 DAYS INCUBATION 06/16/17 16:00 Blood - Peripheral Venous Blood Culture - Final NO GROWTH AFTER 5 DAYS INCUBATION 06/16/17 17:10 Urine - Urine Clean Catch Urine Culture - Final NO GROWTH OBTAINED ASSESSMENT AND PLAN: 86 yo F with PMH CHF, Cerebral aneurysm, HTN and dyslipidemia presented with productive cough x5 days, found with multifocal PNA and acute systolic heart failure exacerbation -Acute systolic heart failure exacerbation -Multifocal PNA vs aspiration -NSTEMI type II, suspect demand induced from above -KRISTEL, suspect prerenal from CHF -NSVT (13 beats) -Mechanical fall -Hypokalemia -Dementia/sundowning -Hypokalemia/hypomagnesemia -Dyslipidemia Plan: Mildly hypotensive today,?from aggressive diuresis. Hold further lasix. Continue ACei as BP tolerates. Patient with 13 best NSVT on telemetry, unclear why not on beta carlos. Discuss with cardiology. Clinically improved today. Continue IV lasix. Antibiotics changed to Augmentin ( day 7). finish after today. Multifocal PNA vs aspiration. Speech/swallow eval noted. HOld further lasix, transition to oral in 24 hours based on volume status and BP. Mild troponin elevation on admission, trended down, 2D echo reviewed. Place on ASA 81 mg, continue statin. Hold off beta carlos till further info available. ACEi resumed. positive exsmoker. Nebs prn, hold off on steroids for now. Lethargy improved after withholding seroquel, avoid for now. Fall precautions. Frequent orientation to environment. DVTPPX with heparin. PT eval, refuses RW use at home. Anticipate NEO on d/c once medical issues improve. Follow up with CM. Anticipate d/c to NEO in 24 hours if SBP stable and no new concerns. Plan discussed with patient in detail, all questions answered.
[2017-06-22] MEDS ORDERED: LISINOPRIL 10 MG TABLET (FP) PO SCH (10:00)
[2017-06-22] MEDS: ASPIRIN 81 MG CHEWABLE TABLETS PO SCH (10:14)
[2017-06-22] MEDS: AMOX TR/POT CLAV 500MG/125MG TABLETS (FP) PO SCH ×2 (10:14→19:28)
[2017-06-22] MEDS: FUROSEMIDE 40 MG/4 ML INJECTABLE VIAL IVPUSH SCH (13:07)
--- NOTE | 2017-06-22 14:21 | PN ---
Physical Exam: SUBJECTIVE: Patient seen and examined. No acute events overnight. Patient offers no new complaints today. says she feels better today. She says her breathing is better compared to yesterday. Denies SOB, chest pain, dizziness, lightheadedness, nausea and vomiting. OBJECTIVE: Vital Signs Period Temp Pulse Resp BP Sys/Eastman Pulse Ox Last 24 Hr 97.4 F-98.8 F 73-90 18-20 80-133/40-80 91-95 GENERAL: A/o x 2 in NAD HEAD: Normal with no signs of trauma. EYES: extraocular movements intact, conjunctiva clear. ENT:oropharynx clear without exudates, moist mucous membranes. NECK: supple. LUNGS: Lungs CTA b/l, no rales or wheezing appreciated HEART: Regular rate and rhythm, S1, S2 without murmur, rub or gallop. ABDOMEN: Soft, nontender, nondistended, normoactive bowel sounds, no guarding, no rebound, no hepatosplenomegaly, no masses. EXTREMITIES: 2+ pulses, warm, well-perfused, no edema. PSYCH: Normal mood, normal affect. Laboratory Results - last 24 hr 06/22/17 06/22/17 05:35 05:35 WBC 3.9 L RBC 5.03 Hgb 15.8 H Hct 47.3 H MCV 93.9 MCH 31.5 MCHC 33.5 RDW 14.4 Plt Count 208 MPV 8.0 Sodium 138 Potassium 3.6 Chloride 97 L Carbon Dioxide 34 H Anion Gap 7 L BUN 33 H Creatinine 1.1 H Creat Clearance w eGFR 46.88 Random Glucose 99 Calcium 7.5 L Phosphorus 2.6 Magnesium 2.0 Total Bilirubin 0.8 AST 98 H ALT 95 H Alkaline Phosphatase 80 Total Protein 5.7 L Albumin 2.3 L Active Medications Generic Name Dose Route Start Last Admin Trade Name Freq PRN Reason Stop Dose Admin Albuterol/Ipratropium 1 amp 06/17/17 16:00 06/22/17 11:10 Duoneb - NEB 1 amp RQID MARIANA Administration Amoxicillin/Clavulanate Potassium 1 tab 06/21/17 12:00 06/22/17 10:14 Augmentin - 500mg Tablet PO 1 tab BID@0800,1730 MARIANA Administration Aspirin 81 mg 06/22/17 10:00 06/22/17 10:14 Asa - PO 81 mg DAILY MARIANA Administration Atorvastatin Calcium 10 mg 06/16/17 22:00 06/21/17 21:39 Lipitor - PO Not Given HS MARIANA Donepezil HCl 10 mg 06/18/17 15:11 06/21/17 21:39 Aricept - PO Not Given HS MARIANA Heparin Sodium (Porcine) 5,000 unit 06/16/17 22:00 06/22/17 05:19 Heparin - SQ Not Given TID [facility] ASSESSMENT/PLAN: 86 yo F with PMH CHF, Cerebral aneurysm, HTN and dyslipidemia presented with productive cough x5 days. #Acute on Chronic CHF exacerbation -hypotensive today, possibly from aggresive diuresis -IV Lasix 40mg held today due to hypotension -Lisinopril also held -Strict I/O's -Daily weights -Echo: 40-45% Ejection fraction -Shun PRN -Dr. Hicks consulted (Patient's [employer]) -Check BP q2h. #Bilateral Pneumonia -Completed Azithromycin,Ceftriaxone 5 days -Cont Augmentin 500mg BID. Day 7 Abx -CT chest: B/l Upper lobe and left lower lobe opacities -afebrile, no leukocytosis -O2 therapy, maintain Sat>90% -Ucx, Bcx negative -Chest PT #Non-stustained v-tach -2 episodes overnight 13 beats -Called cardiology, waiting for call back -will monitor -Hold off beta carols until further information available #KRISTEL -resolved -likely due prerenal -will monitor BMP -avoid nephrotoxins #Tropinemia -trended down -No ekg changes -FU echo tomorrow #Mechanical Fall -will require NEO on discharge -Pre/post #Dementia -cont home med: Aricept -held Seroquel due to lethargy #Dyslipidemia -cont home med: Lipitor 10mg #DVT ppx -Hep sq Anticipate D/C 24 HOURS if patient improves. Will be discharged to Assisted. Visit type - Emergency Visit Emergency Visit: Yes ED Registration Date: 06/16/17 Care time: The patient presented to the Emergency Department on the above date and was hospitalized for further evaluation of their emergent condition. - New Patient This patient is new to me today: No - Critical Care Critical Care patient: No
--- NOTE | 2017-06-22 15:52 | PN ---
Progress Note, Physician Chief Complaint: NSVT noted History of Present Illness: This is an 86 year old female with a PMH of dementia, HTn, and HLD. She presented with a cough and CXR showed cardiomegally and nodular infiltrate. Presently she is comfortable and denies cardiac symptoms. Echocardiogram 06/18/17: Moderate LVH Moderately reduced LV function EF 40 - 45% Normal RV function Mild to moderate TR 13 beats of NSVT was noted - Current Medication List Current Medications: Active Medications Albuterol/Ipratropium (Duoneb -) 1 amp NEB RQID [facility] Last Admin: 06/22/17 11:10 Dose: 1 amp Amoxicillin/Clavulanate Potassium (Augmentin - 500mg Tablet) 1 tab PO BID@0800, 1730 [facility] Last Admin: 06/22/17 10:14 Dose: 1 tab Aspirin (Asa -) 81 mg PO DAILY [facility] Last Admin: 06/22/17 10:14 Dose: 81 mg Atorvastatin Calcium (Lipitor -) 10 mg PO HS [facility] Last Admin: 06/21/17 21:39 Dose: Not Given Donepezil HCl (Aricept -) 10 mg PO [facility] Last Admin: 06/21/17 21:39 Dose: Not Given Heparin Sodium (Porcine) (Heparin -) 5,000 unit SQ TID [facility] Last Admin: 06/22/17 05:19 Dose: Not Given - Objective Vital Signs: Vital Signs Temperature 98 F 06/22/17 12:31 Pulse Rate 78 06/22/17 12:31 Respiratory Rate 20 06/22/17 12:31 Blood Pressure 91/46 06/22/17 12:31 O2 Sat by Pulse Oximetry (%) 91 L 06/22/17 09:40 Constitutional: Yes: Thin HENT: Yes: WNL Neck: Yes: WNL Cardiovascular: Yes: Regular Rate and Rhythm (NL S1S2 no MRHG) Respiratory: Yes: CTA Bilaterally, Other (with minimal basilar crackles) Gastrointestinal: Yes: Soft Extremities: Yes: WNL Edema: No Neurological: Yes: Alert, Oriented (grossly non focal) Labs: CBC, BMP 06/22/17 05:35 06/22/17 05:35 Assessment/Plan CHF Combined systolic and diastolic Acute on chronic With 13 beats of NSVT noted Would add COREG 3.125 mg PO Q12 hours Would continue to hold lisinopril given low BP HLD Continue STATIN and ASA
[2017-06-22] MEDS: DONEPEZIL HCL 5 MG TABLET (FP) PO SCH (22:25)
[2017-06-22] MEDS: ATORVASTATIN CA 10 MG TABLET (FP) PO SCH (22:25)
[2017-06-23] MEDS: HEPARIN NA (PORCINE) 5,000 UNITS/ML 1ML VIAL SQ SCH ×2 (05:12→13:24)
[2017-06-23 06:58] LABS: HEMOGLOBIN 15.7 GM/dL (10.7-15.3); MCH 31.4 pg (25.7-33.7); MCHC 33.4 g/dl (32.0-36.0); MEAN CELL VOLUME 94.1 fl (80-96); PLATELET COUNT 233 K/MM3 (134-434); RDW 14.5 % (11.6-15.6); WHITE BLOOD COUNT 4.5 K/mm3 (4.0-10.0)
[2017-06-23 08:01] LABS: ALBUMIN 2.2 g/dl (3.4-5.0); ALK PHOS 76 U/L (45-117); ANION GAP 9 (8-16); BILIRUBIN,TOTAL 0.9 mg/dL (0.2-1.0); BLOOD UREA NITROGEN 33 mg/dL (7-18); CALCIUM 7.8 mg/dL (8.5-10.1); CHLORIDE 98 mmol/L (98-107); CO2 32 mmol/L (21-32); GLUCOSE,RANDOM 89 mg/dL (74-106); MAGNESIUM 2.2 mg/dL (1.8-2.4); PHOSPHOROUS 2.5 mg/dL (2.5-4.9); POTASSIUM 3.8 mmol/L (3.5-5.1); SGOT/AST 104 U/L (15-37); SGPT/ALT 97 U/L (12-78); SODIUM 139 mmol/L (136-145); TOT PROT 5.6 g/dl (6.4-8.2)
--- NOTE | 2017-06-23 09:49 | PN ---
Progress Note, [employer] - Note Progress Note: Selected Entries 06/22/17 06/22/17 06/22/17 02:00 05:52 10:00 Breakfast Lunch Supper Temperature 98.6 F 97.4 F L 98 F 06/22/17 06/22/17 06/22/17 10:15 12:31 13:19 Breakfast 25% Lunch 25% Supper Temperature 98 F 06/22/17 06/22/17 06/22/17 16:00 18:44 20:00 Breakfast Lunch Supper 25% Temperature 98.2 F 97.9 F 06/22/17 06/23/17 06/23/17 22:00 02:00 06:00 Breakfast Lunch Supper Temperature 98.3 F 97.9 F 97.8 F Laboratory Tests 06/23/17 05:35 WBC 4.5 Pt on reg diet/thin liquid. Flat affect. Simple verbal responses. Good mastication and brisk swallow without overt signs of aspiration. Consider appetite stimulant/supplements as indicated.
[2017-06-23] MEDS ORDERED: PT OWN MED DRAWER 7, Y5N ONE ×2 (10:31→15:09)
[2017-06-23] MEDS: CARVEDILOL 3.125 MG TABLET (FP) PO SCH ×2 (10:32→21:10)
[2017-06-23] MEDS: ASPIRIN 81 MG CHEWABLE TABLETS PO SCH (10:32)
--- NOTE | 2017-06-23 12:03 | DS ---
Physical Exam: SUBJECTIVE: Patient seen and examined. No acute events overnight. Patient offers no new complaints. Says her breathing is much better today. Denies dizziness, sob, chest pain, lightheadedness, abdominal pain, nausea and vomiting. OBJECTIVE: Vital Signs Period Temp Pulse Resp BP Sys/Eastman Pulse Ox Last 24 Hr 97.4 F-98.3 F 64-80 18-20 91-115/46-71 92-92 PHYSICAL EXAM GENERAL: A/o x 2 in NAD HEAD: Normal with no signs of trauma. EYES: extraocular movements intact, conjunctiva clear. ENT:oropharynx clear without exudates, moist mucous membranes. NECK: supple. LUNGS: Lungs CTA b/l, no rales or wheezing appreciated HEART: Regular rate and rhythm, S1, S2 without murmur, rub or gallop. ABDOMEN: Soft, nontender, nondistended, normoactive bowel sounds, no guarding, no rebound, no hepatosplenomegaly, no masses. EXTREMITIES: 2+ pulses, warm, well-perfused, no edema. PSYCH: Normal mood, normal affect. LABS Laboratory Results - last 24 hr 06/23/17 06/23/17 05:35 05:35 WBC 4.5 RBC 5.00 Hgb 15.7 H Hct 47.0 H MCV 94.1 MCH 31.4 MCHC 33.4 RDW 14.5 Plt Count 233 MPV 8.0 Sodium 139 Potassium 3.8 Chloride 98 Carbon Dioxide 32 Anion Gap 9 BUN 33 H Creatinine 1.0 Creat Clearance w eGFR 52.33 Random Glucose 89 Calcium 7.8 L Phosphorus 2.5 Magnesium 2.2 Total Bilirubin 0.9 AST 104 H ALT 97 H Alkaline Phosphatase 76 Total Protein 5.6 L Albumin 2.2 L HOSPITAL COURSE: Date of Admission:06/16/17 86 yo F with PMH of D&S CHF, Cerebral aneurysm, HTN and dyslipidemia presented with productive cough x5 days and was found to have Bilateral pneumonia and acute on chronic CHF exacerbation. Patient was treated with IV and oral antibiotics for a total of 7 days. Patient was also treated with Lasix. Patient was also found to have 2 episodes of V-tach. Cardiology was consulted. Patient started on Coreg. Patient clinically improved. Medically cleared for discharge. She will follow up outpatient with PCP and cardiology in 1 week. She will be transferred to SNF. Date of Discharge: 06/23/17 Minutes to complete discharge: 35 Discharge Summary Reason For Visit: PNEUMONIA Current Active Problems KRISTEL (acute kidney injury) (Acute) Acute CHF (Acute) Hemoptysis (Acute) Pneumonia (Acute) Polycythemia (Acute) Condition: Improved - Instructions Diet, Activity, Other Instructions: You were here because of pneumonia. You were treated with antibiotics. You will need to follow up with your primary care physician in 1 week. You will likely need a chest x ray in 4 weeks for resolution of pneumonia. Follow up with your wardrobe assistant in 1 week. He may want to adjust your blood pressure medications. Take medications as directed. You will be discharged on a new blood pressure medication called Carvedilol ( Coreg). You will need to take it 2 times a day. We have stopped your Lisinopril. Your doctor will decide whether he wants to continue you on it or not. You will also need to continue Lasix 20mg. Take 1 tablet a day. If you feel worsening shortness of breath, new fevers, dizziness, nausea, vomiting, please call your doctor or go to the nearest emergency room. Referrals: Maicol Hicks MD [Staff Physician] - 1 Week Anushka Blevins MD [Primary Care Provider] - 1 Week Disposition: INTERMEDIATE FACILITY - Home Medications Comprehensive Discharge Medication List: Ambulatory Orders Donepezil HCl [Aricept -] 0 mg PO DAILY 06/16/17 Furosemide [Lasix -] 20 mg PO DAILY 06/16/17 Simvastatin 20 mg PO DAILY 06/16/17 Aspirin [Ecotrin] 81 mg PO DAILY #30 tablet. 06/23/17 Carvedilol [Coreg -] 3.125 mg PO BID #60 tablet 06/23/17 This patient is new to me today: No Emergency Visit: Yes ED Registration Date: 06/16/17 Care time: The patient presented to the Emergency Department on the above date and was hospitalized for further evaluation of their emergent condition. Critical Care patient: No - Discharge Referral Referred to [facility] Med P.C.: No
--- NOTE | 2017-06-23 12:58 | PN ---
Teaching Attending Note Name of Resident: Teresa Gant ATTENDING PHYSICIAN STATEMENT Time of evaluation: 11:15 AM I saw and evaluated the patient. I reviewed the resident's note and discussed the case with the resident. I agree with the resident's findings and plan as documented. SUBJECTIVE: patient seen and examined, no complaints. OBJECTIVE: Vital Signs Period Temp Pulse Resp BP Sys/Eastman Pulse Ox Last 24 Hr 97.4 F-98.3 F 64-80 18-20 93-115/56-71 92-92 Intake & Output 06/20/17 06/21/17 06/22/17 06/23/17 23:59 23:59 23:59 23:59 Intake Total 960 540 Balance 960 540 Weight 97 lb 4 oz 98 lb 9.6 oz 91 lb 3.2 oz 90 lb 4 oz General: sitting in bed in no acute distress Chest: good air entry bilaterally, no rales or wheezing appreciated Abdomen:soft, NT, ND, positive bowel sounds extremities: no edema CVS:S1S2 regular Home Medication List Medication Instructions Recorded Confirmed Type Donepezil HCl [Aricept -] 0 mg PO DAILY 06/16/17 06/16/17 History Furosemide [Lasix -] 20 mg PO DAILY 06/16/17 06/16/17 History Simvastatin 20 mg PO DAILY 06/16/17 06/16/17 History Active Medications Generic Name Dose Route Start Last Admin Trade Name Freq PRN Reason Stop Dose Admin Aspirin 81 mg 06/22/17 10:00 06/23/17 10:32 Asa - PO 81 mg DAILY MARIANA Administration Atorvastatin Calcium 10 mg 06/16/17 22:00 06/22/17 22:25 Lipitor - PO 10 mg HS [facility]IANA Administration Carvedilol 3.125 mg 06/23/17 10:00 06/23/17 10:32 Coreg - PO 3.125 mg BID MARIANA Administration Donepezil HCl 10 mg 06/18/17 15:11 06/22/17 22:25 Aricept - PO 10 mg HS MARIANA Administration Heparin Sodium (Porcine) 5,000 unit 06/16/17 22:00 06/23/17 05:12 Heparin - SQ 5,000 unit TID MARIANA Administration Home Medication List Medication Instructions Recorded Confirmed Type Donepezil HCl [Aricept -] 0 mg PO DAILY 06/16/17 06/16/17 History Furosemide [Lasix -] 20 mg PO DAILY 06/16/17 06/16/17 History Simvastatin 20 mg PO DAILY 06/16/17 06/16/17 History Laboratory Results - last 24 hr 06/23/17 06/23/17 05:35 05:35 WBC 4.5 RBC 5.00 Hgb 15.7 H Hct 47.0 H MCV 94.1 MCH 31.4 MCHC 33.4 RDW 14.5 Plt Count 233 MPV 8.0 Sodium 139 Potassium 3.8 Chloride 98 Carbon Dioxide 32 Anion Gap 9 BUN 33 H Creatinine 1.0 Creat Clearance w eGFR 52.33 Random Glucose 89 Calcium 7.8 L Phosphorus 2.5 Magnesium 2.2 Total Bilirubin 0.9 AST 104 H ALT 97 H Alkaline Phosphatase 76 Total Protein 5.6 L Albumin 2.2 L Microbiology 06/16/17 16:00 Blood - Peripheral Venous Blood Culture - Final NO GROWTH AFTER 5 DAYS INCUBATION 06/16/17 16:00 Blood - Peripheral Venous Blood Culture - Final NO GROWTH AFTER 5 DAYS INCUBATION 06/16/17 17:10 Urine - Urine Clean Catch Urine Culture - Final NO GROWTH OBTAINED ASSESSMENT AND PLAN: 86 yo F with PMH CHF, Cerebral aneurysm, HTN and dyslipidemia presented with productive cough x5 days, found with multifocal PNA and acute systolic heart failure exacerbation -Acute systolic heart failure exacerbation -Multifocal PNA vs aspiration -NSTEMI type II, suspect demand induced from above -KRISTEL, suspect prerenal from CHF -NSVT (13 beats) -Mechanical fall -Hypokalemia -Dementia/sundowning -Hypokalemia/hypomagnesemia -Dyslipidemia Plan: BP improved. ACEi d/kristie for now. Resume coreg lower dose as per cardiology recs. Resume home lasix 20 mg daily starting tomorrow with weight monitoring at the SNF. No WBC or fevers or new concerns for infection. Follow up CXR in 4 weeks. Cardiology input appreciated. D/c to SNF today with outpatient cardiology follow up. Plan discussed with patient, questions answered.
[2017-06-23] MEDS ORDERED: MEGESTROL ACETATE 400 MG/10 ML UNIT DOSE CUP PO SCH (13:51)
[2017-06-23] MEDS: MEGESTROL ACETATE 400 MG/10 ML UNIT DOSE CUP PO SCH (15:12)
--- NOTE | 2017-06-23 16:27 | PN ---
Progress Note, Physician Chief Complaint: NSVT noted History of Present Illness: This is an 86 year old female with a PMH of dementia, HTn, and HLD. She presented with a cough and CXR showed cardiomegally and nodular infiltrate. Presently she is comfortable and denies cardiac symptoms. Echocardiogram 06/18/17: Moderate LVH Moderately reduced LV function EF 40 - 45% Normal RV function Mild to moderate TR 13 beats of NSVT was noted - Current Medication List Current Medications: Active Medications Aspirin (Asa -) 81 mg PO DAILY [facility] Last Admin: 06/23/17 10:32 Dose: 81 mg Atorvastatin Calcium (Lipitor -) 10 mg PO HS [facility] Last Admin: 06/22/17 22:25 Dose: 10 mg Carvedilol (Coreg -) 3.125 mg PO BID [facility] Last Admin: 06/23/17 10:32 Dose: 3.125 mg Donepezil HCl (Aricept -) 10 mg PO HS [facility] Last Admin: 06/22/17 22:25 Dose: 10 mg Heparin Sodium (Porcine) (Heparin -) 5,000 unit SQ TID [facility] Last Admin: 06/23/17 13:24 Dose: 5,000 unit Megestrol Acetate (Megace Oral Suspension -) 400 mg PO DAILY [facility] Last Admin: 06/23/17 15:12 Dose: 400 mg - Objective Vital Signs: Vital Signs Temperature 97.5 F L 06/23/17 13:25 Pulse Rate 64 06/23/17 13:25 Respiratory Rate 22 06/23/17 13:25 Blood Pressure 104/67 06/23/17 13:25 O2 Sat by Pulse Oximetry (%) 92 L 06/23/17 09:00 Constitutional: Yes: No Distress, Thin HENT: Yes: WNL Neck: Yes: WNL Cardiovascular: Yes: Regular Rate and Rhythm (NL S1S2, No MRHG) Respiratory: Yes: CTA Bilaterally Gastrointestinal: Yes: Soft Extremities: Yes: WNL Edema: No Neurological: Yes: Alert, Oriented (Non focal) Labs: CBC, BMP 06/23/17 05:35 06/23/17 05:35 Assessment/Plan CHF Combined systolic and diastolic Acute on chronic With 13 beats of NSVT noted Continue carvedilol 3.125 mg PO BID HLD Continue STATIN and ASA
[2017-06-23] MEDS: DONEPEZIL HCL 5 MG TABLET (FP) PO SCH (21:10)
[2017-06-23] MEDS: ATORVASTATIN CA 10 MG TABLET (FP) PO SCH (21:10)
[2017-06-24] MEDS ORDERED: PT OWN MED DRAWER 7, Y5N ONE (08:54)
[2017-06-24] MEDS: MEGESTROL ACETATE 400 MG/10 ML UNIT DOSE CUP PO SCH (09:14)
[2017-06-24] MEDS: ASPIRIN 81 MG CHEWABLE TABLETS PO SCH (09:14)
[2017-06-24] MEDS: CARVEDILOL 3.125 MG TABLET (FP) PO SCH ×2 (09:14→21:14)
--- NOTE | 2017-06-24 09:20 | PN ---
Addendum entered and electronically signed by King Rodgers RESIDENT 06/24/17 09:50: correction Patient is not on morphine drip. Patient feels better Reports breathing has improved. Denies chest pain, sob, lightheadidness, dizziness Early patient reused for meds but later agreed to take meds. GENERAL: awake, alert HEAD: Normal with no signs of trauma. EYES: extraocular movements intact, conjunctiva clear. ENT:oropharynx clear without exudates, moist mucous membranes. NECK: supple. LUNGS: b/l good air entry, no wheezing, no rales HEART: Regular rate and rhythm, S1, S2 without murmur, rub or gallop. ABDOMEN: Soft, nontender, nondistended, normoactive bowel sounds, no guarding, no rebound, EXTREMITIES: warm, well-perfused, no edema. PSYCH: Normal mood, normal affect. Examination. Original Note: <King Rodgers - Last Filed: 06/24/17 09:31> Physical Exam: SUBJECTIVE: No acute events overnight. Patient offers no new complaints today. says she feels better today with mprphine drip. breathing is same as yesterday. Denies SOB, chest pain, dizziness, lightheadedness, nausea and vomiting. OBJECTIVE: Vital Signs Period Temp Pulse Resp BP Sys/Eastman Pulse Ox Last 24 Hr 97.4 F-98.1 F 64-66 19-22 95-123/57-68 92 GENERAL: awake, alert. HEAD: Normal with no signs of trauma. EYES: extraocular movements intact, conjunctiva clear. ENT:oropharynx clear without exudates, moist mucous membranes. NECK: supple. LUNGS: good air entry left side, no wheezing and rales on right side, no breath sonud on right side HEART: Regular rate and rhythm, S1, S2 without murmur, rub or gallop. ABDOMEN: Soft, nontender, nondistended, normoactive bowel sounds, no guarding, no rebound, EXTREMITIES: warm, well-perfused, no edema. PSYCH: Normal mood, normal affect. Active Medications Generic Name Dose Route Start Last Admin Trade Name Freq PRN Reason Stop Dose Admin Aspirin 81 mg 06/22/17 10:00 06/24/17 09:14 Asa - PO 81 mg DAILY MARIANA Administration Atorvastatin Calcium 10 mg 06/16/17 22:00 06/23/17 21:10 Lipitor - PO Not Given HS MARIANA Carvedilol 3.125 mg 06/23/17 10:00 06/24/17 09:14 Coreg - PO 3.125 mg BID [facility] Administration Donepezil HCl 10 mg 06/18/17 15:11 06/23/17 21:10 Aricept - PO Not Given HS MARIANA Megestrol Acetate 400 mg 06/23/17 14:45 06/24/17 09:14 Megace Oral Suspension - PO 400 mg DAILY [facility] Administration ASSESSMENT/PLAN: 86 yo F with PMH CHF, Cerebral aneurysm, HTN and dyslipidemia presented with productive cough x5 days. #Acute on Chronic CHF exacerbation improved monitor vitals monitor intake and output ECHO reviewed daily weight. start lasix 20mg daily cardiology consult appreciated. jennie dc for now. #Bilateral Pneumonia - Improved . afebrile, no leukocytosis maintaining a saturation on room air. #Non-stustained v-tach - no new episodes over night - on low dose of coreg . - cardiology on case. #KRISTEL -resolved #Dementia -cont home med: Aricept -held Seroquel due to lethargy #Dyslipidemia -cont home med: Lipitor 10mg nutrition: sodium controlled diet fluid: orally allowed. Dispo: discharged to detention Visit type - Emergency Visit Emergency Visit: Yes ED Registration Date: 06/16/17 Care time: The patient presented to the Emergency Department on the above date and was hospitalized for further evaluation of their emergent condition. - New Patient This patient is new to me today: Yes Date on this admission: 06/24/17 - Critical Care Critical Care patient: No - Discharge Referral Referred to [facility] Med P.C.: No <Adia Dobbins - Last Filed: 06/24/17 11:06> Physical Exam: Patient seen and examined. Agree with above findings and plan of care with exceptions mentioned below. O/E: Chest: good air entry bilaterally,no rales or wheezing extremities: no edema 86 yo F with PMH CHF, Cerebral aneurysm, HTN and dyslipidemia presented with productive cough x5 days, found with multifocal PNA and acute systolic heart failure exacerbation -Acute systolic heart failure exacerbation -Multifocal PNA vs aspiration -NSTEMI type II, suspect demand induced from above -KRISTEL, suspect prerenal from CHF -NSVT (13 beats) -Mechanical fall -Hypokalemia -Dementia/sundowning -Hypokalemia/hypomagnesemia -Dyslipidemia Plan: BP improved. ACEi d/kristie for now. Continue coreg as tolerated. Resume home lasix 20 mg daily starting tomorrow with weight monitoring at the SNF. No WBC or fevers or new concerns for infection. Follow up CXR in 4 weeks. Cardiology input appreciated. Plan for d/c to SNF today pending disposition arrangements and approval. Plan discussed with patient, questions answered.
[2017-06-24] MEDS ORDERED: MEGESTROL ACETATE 400 MG/10 ML UNIT DOSE CUP PO SCH (10:00)
[2017-06-24] MEDS: FUROSEMIDE 20 MG TABLET (FP) PO SCH (12:41)
--- NOTE | 2017-06-24 16:03 | PN ---
Progress Note, Physician Chief Complaint: Cardiology follow up for cardiomyopathy and NSVT. No complaints Telemetry vent couplet. This is an 86 year old female with a PMH of dementia, HTn, and HLD. She presented with a cough and CXR showed cardiomegally and nodular infiltrate. Echocardiogram 06/18/17: Moderate LVH Moderately reduced LV function EF 40 - 45% Normal RV function Mild to moderate TR - Current Medication List Current Medications: Active Medications Aspirin (Asa -) 81 mg PO DAILY [facility] Last Admin: 06/24/17 09:14 Dose: 81 mg Atorvastatin Calcium (Lipitor -) 10 mg PO HS [facility] Last Admin: 06/23/17 21:10 Dose: Not Given Carvedilol (Coreg -) 3.125 mg PO BID [facility] Last Admin: 06/24/17 09:14 Dose: 3.125 mg Donepezil HCl (Aricept -) 10 mg PO HS [facility] Last Admin: 06/23/17 21:10 Dose: Not Given Furosemide (Lasix -) 20 mg PO DAILY [facility] Last Admin: 06/24/17 12:41 Dose: 20 mg Megestrol Acetate (Megace Oral Suspension -) 400 mg PO DAILY [facility] Last Admin: 06/24/17 09:14 Dose: 400 mg - Objective Vital Signs: Vital Signs Temperature 97.9 F 06/24/17 14:38 Pulse Rate 64 06/24/17 14:38 Respiratory Rate 18 06/24/17 14:38 Blood Pressure 88/48 06/24/17 14:38 O2 Sat by Pulse Oximetry (%) 98 06/24/17 09:00 Constitutional: Yes: Thin Eyes: Yes: Conjunctiva Clear, EOM Intact HENT: Yes: Atraumatic, Normocephalic Neck: Yes: Trachea Midline Cardiovascular: Yes: Regular Rate and Rhythm Respiratory: Yes: Regular, CTA Bilaterally Gastrointestinal: Yes: Normal Bowel Sounds, Soft Edema: No Labs: CBC, BMP 06/23/17 05:35 06/23/17 05:35 Problem List - Problems (1) KRISTEL (acute kidney injury) Code(s): N17.9 - ACUTE KIDNEY FAILURE, UNSPECIFIED (2) Acute CHF Code(s): I50.9 - HEART FAILURE, UNSPECIFIED Assessment/Plan systolic and diastolic Acute on chronic heart failure. Likely underlying CAD. Telemetry reviewed. Please check BNP
[2017-06-24] MEDS: ATORVASTATIN CA 10 MG TABLET (FP) PO SCH (21:14)
[2017-06-24] MEDS: DONEPEZIL HCL 5 MG TABLET (FP) PO SCH (21:14)
[2017-06-25] MEDS ORDERED: PT OWN MED DRAWER 7, Y5N ONE (10:48)
[2017-06-25] MEDS: ASPIRIN 81 MG CHEWABLE TABLETS PO SCH (11:03)
[2017-06-25] MEDS: FUROSEMIDE 20 MG TABLET (FP) PO SCH (11:04)
[2017-06-25] MEDS: CARVEDILOL 3.125 MG TABLET (FP) PO SCH ×2 (11:04→21:06)
[2017-06-25] MEDS: MEGESTROL ACETATE 400 MG/10 ML UNIT DOSE CUP PO SCH (11:04)
--- NOTE | 2017-06-25 12:48 | PN ---
Teaching Attending Note Name of Resident: Adia Dobbins ATTENDING PHYSICIAN STATEMENT Time of evaluation: 8:00 AM I saw and evaluated the patient. I reviewed the resident's note and discussed the case with the resident. I agree with the resident's findings and plan as documented. SUBJECTIVE: patient seen and examined, overall unchanged, minimal verbal responses, no complaints, breakfast at bedside, encouraged to eat, though not very willing. OBJECTIVE: Vital Signs Period Temp Pulse Resp BP Sys/Eastman Pulse Ox Last 24 Hr 97.2 F-97.9 F 64-67 18-20 88-113/48-62 94 Intake & Output 06/22/17 06/23/17 06/24/17 06/25/17 23:59 23:59 23:59 23:59 Intake Total 540 300 Balance 540 300 Weight 91 lb 3.2 oz 90 lb 4 oz general: sitting in bed in no acute distress Chest: decreased effort but no rales or wheezing abdomen: soft, NT, ND, positive bowel sounds extremities: no edema Home Medication List Medication Instructions Recorded Confirmed Type Donepezil HCl [Aricept -] 0 mg PO DAILY 06/16/17 06/16/17 History Furosemide [Lasix -] 20 mg PO DAILY 06/16/17 06/16/17 History Simvastatin 20 mg PO DAILY 06/16/17 06/16/17 History Active Medications Generic Name Dose Route Start Last Admin Trade Name Freq PRN Reason Stop Dose Admin Aspirin 81 mg 06/22/17 10:00 06/25/17 11:03 Asa - PO 81 mg DAILY [facility]IANA Administration Atorvastatin Calcium 10 mg 06/16/17 22:00 06/24/17 21:14 Lipitor - PO 10 mg HS [facility]IANA Administration Carvedilol 3.125 mg 06/23/17 10:00 06/25/17 11:04 Coreg - PO Not Given BID MARIANA Donepezil HCl 10 mg 06/18/17 15:11 06/24/17 21:14 Aricept - PO 10 mg HS MARIANA Administration Furosemide 20 mg 06/24/17 10:00 06/25/17 11:04 Lasix - PO 20 mg DAILY [facility]IANA Administration Megestrol Acetate 400 mg 06/23/17 14:45 06/25/17 11:04 Megace Oral Suspension - PO 400 mg DAILY [facility]IANA Administration Laboratory Results - last 24 hr 06/25/17 06:20 B-Natriuretic Peptide 13640.88 H Microbiology 06/16/17 16:00 Blood - Peripheral Venous Blood Culture - Final NO GROWTH AFTER 5 DAYS INCUBATION 06/16/17 16:00 Blood - Peripheral Venous Blood Culture - Final NO GROWTH AFTER 5 DAYS INCUBATION 06/16/17 17:10 Urine - Urine Clean Catch Urine Culture - Final NO GROWTH OBTAINED ASSESSMENT AND PLAN: 86 yo F with PMH CHF, Cerebral aneurysm, HTN and dyslipidemia presented with productive cough x5 days, found with multifocal PNA and acute systolic heart failure exacerbation -Acute systolic heart failure exacerbation -Multifocal PNA vs aspiration -NSTEMI type II, suspect demand induced from above -KRISTEL, suspect prerenal from CHF -NSVT (13 beats) -Mechanical fall -Hypokalemia -Dementia/sundowning -Hypokalemia/hypomagnesemia -Dyslipidemia Plan: BP improved. ACEi d/kristie for now. Coreg low dose as tolerated. Home lasix 20 mg. No WBC or fevers or new concerns for infection. Follow up CXR in 4 weeks. Cardiology input appreciated. Patient with poor oral intake, started on on megace. Likely etiology of her intermittent soft BP Encourage oral intake with family, add ensure. Nutrition consult. D/c to SNF pending bed availability. Discussed with CM, unlikely over the weekend. Plan discussed with patient, questions answered.
[2017-06-25] MEDS: ATORVASTATIN CA 10 MG TABLET (FP) PO SCH (21:06)
[2017-06-25] MEDS: DONEPEZIL HCL 5 MG TABLET (FP) PO SCH (21:06)
--- NOTE | 2017-06-26 07:49 | PN ---
Teaching Attending Note Name of Resident: Teresa Gant ATTENDING PHYSICIAN STATEMENT Time of evaluation: 910 AM I saw and evaluated the patient. I reviewed the resident's note and discussed the case with the resident. I agree with the resident's findings and plan as documented with exceptions mentioned below. SUBJECTIVE: Patient seen and examined. no complaints, poor appetitie. OBJECTIVE: Vital Signs Period Temp Pulse Resp BP Sys/Eastman Pulse Ox Last 24 Hr 97.1 F-98.0 F 58-68 16-20 92-111/52-64 90-92 Intake & Output 06/23/17 06/24/17 06/25/17 06/26/17 23:59 23:59 23:59 23:59 Intake Total 300 Balance 300 Weight 90 lb 4 oz general: sitting in bed in no acute distress chest: CTAB, no rales or wheezing Home Medication List Medication Instructions Recorded Confirmed Type Donepezil HCl [Aricept -] 0 mg PO DAILY 06/16/17 06/16/17 History Furosemide [Lasix -] 20 mg PO DAILY 06/16/17 06/16/17 History Simvastatin 20 mg PO DAILY 06/16/17 06/16/17 History Active Medications Generic Name Dose Route Start Last Admin Trade Name Freq PRN Reason Stop Dose Admin Aspirin 81 mg 06/22/17 10:00 06/25/17 11:03 Asa - PO 81 mg DAILY MARIANA Administration Atorvastatin Calcium 10 mg 06/16/17 22:00 06/25/17 21:06 Lipitor - PO Not Given HS MARIANA Carvedilol 3.125 mg 06/23/17 10:00 06/25/17 21:06 Coreg - PO Not Given BID MARIANA Donepezil HCl 10 mg 06/18/17 15:11 06/25/17 21:06 Aricept - PO Not Given HS MARIANA Furosemide 20 mg 06/24/17 10:00 06/25/17 11:04 Lasix - PO 20 mg DAILY MARIANA Administration Megestrol Acetate 400 mg 06/23/17 14:45 06/25/17 11:04 Megace Oral Suspension - PO 400 mg DAILY MARIANA Administration Laboratory Results - last 24 hr 06/25/17 06:20 B-Natriuretic Peptide 39136.88 H Microbiology 06/16/17 16:00 Blood - Peripheral Venous Blood Culture - Final NO GROWTH AFTER 5 DAYS INCUBATION 06/16/17 16:00 Blood - Peripheral Venous Blood Culture - Final NO GROWTH AFTER 5 DAYS INCUBATION 06/16/17 17:10 Urine - Urine Clean Catch Urine Culture - Final NO GROWTH OBTAINED ASSESSMENT AND PLAN: 86 yo F with PMH CHF, Cerebral aneurysm, HTN and dyslipidemia presented with productive cough x5 days, found with multifocal PNA and acute systolic heart failure exacerbation -Acute systolic heart failure exacerbation -Multifocal PNA vs aspiration -NSTEMI type II, suspect demand induced from above -KRISTEL, suspect prerenal from CHF -NSVT (13 beats) -Mechanical fall -Hypokalemia -Dementia/sundowning -Hypokalemia/hypomagnesemia -Dyslipidemia Plan: BP improved. ACEi d/kristie for now. Coreg low dose as tolerated. Home lasix 20 mg. No WBC or fevers or new concerns for infection. Follow up CXR in 4 weeks. Cardiology input appreciated. Patient with poor oral intake, started on on megace. Likely etiology of her intermittent soft BP Encourage oral intake with family, add ensure. Nutrition consult. D/c to SNF today. Plan discussed with patient, questions answered.
[2017-06-26] MEDS ORDERED: PT OWN MED DRAWER 7, Y5N ONE (10:07)
[2017-06-26] MEDS: CARVEDILOL 3.125 MG TABLET (FP) PO SCH (10:13)
[2017-06-26] MEDS: ASPIRIN 81 MG CHEWABLE TABLETS PO SCH (10:13)
[2017-06-26] MEDS: FUROSEMIDE 20 MG TABLET (FP) PO SCH (10:13)
[2017-06-26] MEDS: MEGESTROL ACETATE 400 MG/10 ML UNIT DOSE CUP PO SCH (10:14)
[2017-06-26 11:44] VITALS: BP 101/59; PULSE 67; TEMP 97.4
--- NOTE | 2017-06-26 12:06 | DS ---
Physical Exam: SUBJECTIVE: Patient seen and examined. No acute events overnight. Patient offers no new complaints. Denies SOB, dizziness, nausea, vomiting, chest pain, lightheadedness, diarrhea. OBJECTIVE: Vital Signs Period Temp Pulse Resp BP Sys/Eastman Pulse Ox Last 24 Hr 97.1 F-98.0 F 58-68 16-20 95-111/54-64 92-96 PHYSICAL EXAM GENERAL: A/o x 2 in NAD HEAD: Normal with no signs of trauma. EYES: extraocular movements intact, conjunctiva clear. ENT:oropharynx clear without exudates, moist mucous membranes. NECK: supple. LUNGS: Lungs CTA b/l, no rales or wheezing appreciated HEART: Regular rate and rhythm, S1, S2 without murmur, rub or gallop. ABDOMEN: Soft, nontender, nondistended, normoactive bowel sounds, no guarding, no rebound, no hepatosplenomegaly, no masses. EXTREMITIES: 2+ pulses, warm, well-perfused, no edema. PSYCH: Normal mood, normal affect. LABS HOSPITAL COURSE: Date of Admission:06/16/17 86 yo F with PMH of D&S CHF, Cerebral aneurysm, HTN and dyslipidemia presented with productive cough x5 days and was found to have Bilateral pneumonia and acute on chronic CHF exacerbation. Patient was treated with IV and oral antibiotics for a total of 7 days. Patient was also treated with Lasix. Patient was also found to have 2 episodes of V-tach. Cardiology was consulted. Patient started on Coreg. Patient clinically improved. Medically cleared for discharge. She will follow up outpatient with PCP and cardiology in 1 week. She will be transferred to SNF. Date of Discharge: 06/26/17 Minutes to complete discharge: 35 Discharge Summary Reason For Visit: PNEUMONIA Current Active Problems KRISTEL (acute kidney injury) (Acute) Acute CHF (Acute) Hemoptysis (Acute) Pneumonia (Acute) Polycythemia (Acute) Condition: Stable - Instructions Diet, Activity, Other Instructions: You were here because of pneumonia. You were treated with antibiotics. You will need to follow up with your primary care physician in 1 week. You will likely need a chest x ray in 4 weeks for resolution of pneumonia. Follow up with your telephone operator in 1 week. He may want to adjust your blood pressure medications. Take medications as directed. You will be discharged on a new blood pressure medication called Carvedilol ( Coreg). You will need to take it 2 times a day. We have stopped your Lisinopril. Your doctor will decide whether he wants to continue you on it or not. Take Megace 400mg daily. Helps in improving diet You will also need to continue Lasix 20mg. Take 1 tablet a day. Recommend daily weights at the facility. You were evaluated by speech and recommended your medications to be crushed with apple sauce. Ensure compact twice daily with meals. If you feel worsening shortness of breath, new fevers, dizziness, nausea, vomiting, please call your doctor or go to the nearest emergency room. Referrals: Maicol Hicks MD [Staff Physician] - 1 Week Anushka Blevins MD [Primary Care Provider] - 1 Week Disposition: [facility] - Home Medications Comprehensive Discharge Medication List: Ambulatory Orders Donepezil HCl [Aricept -] 0 mg PO DAILY 06/16/17 Furosemide [Lasix -] 20 mg PO DAILY 06/16/17 Simvastatin 20 mg PO DAILY 06/16/17 Aspirin [Ecotrin] 81 mg PO DAILY #30 tablet. 06/23/17 Carvedilol [Coreg -] 3.125 mg PO BID #60 tablet 06/23/17 Megestrol Acetate Oral Susp [Megace Oral Suspension -] 400 mg PO DAILY cup 06/11 This patient is new to me today: Yes Date on this admission: 06/26/17 Emergency Visit: Yes ED Registration Date: 06/16/17 Care time: The patient presented to the Emergency Department on the above date and was hospitalized for further evaluation of their emergent condition. Critical Care patient: No - Discharge Referral Referred to [facility] No
== END 2017-06-26 13:52 | DRG 280 ==
LOC: JER 14:16 → JERBED 18:00 → J4S 21:12
PROVIDERS: ADMIT Internal Medicine; ATTEND Hospitalist
DX: I11.0 Hypertensive heart disease with heart failure (principal); J18.9 Pneumonia, unspecified organism; I21.A1 Myocardial infarction type 2; N17.9 Acute kidney failure, unspecified; I47.1 Supraventricular tachycardia; F05 Delirium due to known physiological condition; R91.1 Solitary pulmonary nodule; I50.43 Acute on chronic combined systolic (congestive) and diastolic (congestive) heart failure; K40.90 Unilateral inguinal hernia, without obstruction or gangrene, not specified as recurrent; I10 Essential (primary) hypertension; E78.5 Hyperlipidemia, unspecified; I25.2 Old myocardial infarction; I07.1 Rheumatic tricuspid insufficiency; D75.1 Secondary polycythemia; F03.90 Unspecified dementia, unspecified severity, without behavioral disturbance, psychotic disturbance, mood disturbance, and anxiety; E87.6 Hypokalemia; R29.6 Repeated falls; E83.42 Hypomagnesemia; Z87.891 Personal history of nicotine dependence
CPT/HCPCS: 36415; 71045-TC-FY; 71250-TC; 76705-TC; 80048; 80053; 81003; 81015; 82550; 82553; 82570; 83735; 83880; 84100; 84300; 84484; 85025; 85027; 87040; 87086; 93005; 93010; 93306-TC; 94640; 94761; 97116-GP; 97161-GP; 99284-25; J1644